=== PATIENT | male | born 1970 | race Caucasian/White ===

== ENCOUNTER 2016-11-29 20:41 | Observation (INO) | payer SELFPAY ==
[2016-11-29 20:49] VITALS: BMI 30.7
[2016-11-29] MEDS ORDERED: Pantoprazole 40 MG in Sodium Chloride 0.9% 100 ML IV STA (21:05)
[2016-11-29] MEDS ORDERED: Sodium Chloride 0.9% 1,000 ML IV STA (21:05)
--- NOTE | 2016-11-29 21:33 | ED PDOC ---
Arrival/HPI - General Chief Complaint: Alcohol Ingestion Time Seen by Provider: 11/29/16 20:48 Historian: Patient - History of Present Illness Narrative History of Present Illness (Text): 11/29/16 21:40 Abimael Pedraza is a 46 year old male who presents to the emergency department complaining of right sided abdominal pain after drinking alcohol tonight. Denies any nausea, vomiting, or diarrhea. Patient does not endorse any other complaints. Time/Duration: Other (today ) Symptom Onset: Gradual Symptom Course: Unchanged Severity Level: Mild Activities at Onset: Light Past Medical History - Provider Review Nursing Documentation Reviewed: Yes - Infectious Disease Hx of Infectious Diseases: None - Psychiatric Hx Substance Use: No - Anesthesia Hx Anesthesia: No Family/Social History - Physician Review Nursing Documentation Reviewed: Yes Family/Social History: No Known Family HX Smoking Status: Current Some Days Smoker Hx Alcohol Use: Yes Frequency of alcohol use: Daily Hx Substance Use: No Allergies/Home Meds Allergies/Adverse Reactions: Allergies Unobtainable Allergy (Verified 11/29/16 20:49) Home Medications: Home Meds Medication Instructions Recorded Confirmed Unobtainable 07/07/15 11/29/16 Review of Systems - Physician Review All systems were reviewed & negative as marked: Yes - Review of Systems Constitutional: Normal. absent: Fatigue, Fevers Respiratory: Normal. absent: SOB, Cough, Sputum Cardiovascular: Normal. absent: Chest Pain, Palpitations Gastrointestinal: Abdominal Pain (right sided ). absent: Diarrhea, Nausea, Vomiting Neurological: Normal. absent: Headache, Dizziness Psychiatric: Normal Physical Exam Vital Signs Reviewed: Yes Vital Signs Temp Pulse Resp BP Pulse Ox 11/30/16 06:28 97.9 F 79 16 134/61 99 11/30/16 05:00 71 16 128/72 97 11/30/16 03:25 76 16 115/61 95 11/30/16 00:30 85 16 132/76 99 11/29/16 20:52 97.6 F 112 H 18 142/82 95 Temperature: Afebrile Blood Pressure: Normal Pulse: Tachycardic Respiratory Rate: Normal Appearance: Positive for: Well-Appearing, Comfortable Pain Distress: None Mental Status: Positive for: Alert and Oriented X 3 - Systems Exam Head: Present: Atraumatic, Normocephalic Pupils: Present: PERRL Conjunctiva: Present: Normal Mouth: Present: Moist Mucous Membranes Respiratory/Chest: Present: Clear to Auscultation, Good Air Exchange. No: Respiratory Distress, Accessory Muscle Use Cardiovascular: Present: Regular Rate and Rhythm, Normal S1, S2. No: Murmurs Abdomen: Present: Normal Bowel Sounds. No: Tenderness, Distention, Peritoneal Signs, Rebound, Guarding, McBurney's Point Tender Upper Extremity: Present: Normal Inspection. No: Cyanosis, Edema Lower Extremity: Present: Normal Inspection. No: Edema Neurological: Present: GCS=15, CN II-XII Intact, Speech Normal, Motor Func Grossly Intact, Normal Sensory Function Skin: Present: Warm, Dry, Normal Color. No: Rashes Psychiatric: Present: Alert, Oriented x 3, Intoxicated Medical Decision Making ED Course and Treatment: 11/29/16 21:43 Impression: A 46 year old male who presents to the emergency department complaining of right abdominal pain after drinking alcohol today. Plan: -- CT abdomen pelvis -- EKG -- Labs, cardiac enzymes -- Protonix -- Zofran -- IV fluids -- Urinalysis -- Reassess and disposition Progress Notes: Will place patient on Emergency department obs. for abdominal pain. Re-evaluation Time: 06:38 Reassessment Condition: Re-examined, Improved - Lab Interpretations I have reviewed the lab results: Yes - RAD Interpretation Narrative RAD Interpretations (Text): EXAM: CT Abdomen and Pelvis Without Intravenous Contrast FINDINGS: Limitations: Lack of intravenous contrast. Streak artifact - mild. Lower thorax: Minimal atelectasis. 0.2 cm subpleural nodule vs focal scarring RIGHT middle lobe. ABDOMEN: Liver: Lobulated contour. Enlarged caudate lobe. Gallbladder and bile ducts: Calcified gallstones. No ductal dilation. Pancreas: Unremarkable. No ductal dilation. Spleen: No splenomegaly. Adrenals: No mass. Kidneys and ureters: No renal calculi. Mild pelvocaliectasis of both kidneys. Stomach and bowel: No definite mural thickening. No obstruction. Appendix: No findings to suggest acute appendicitis. PELVIS: Bladder: Distended bladder. No stones. Reproductive: Unremarkable as visualized. ABDOMEN and PELVIS: Intraperitoneal space: No significant fluid collection. No free air. Bones/joints: Mild degenerative changes of spine. Chronic L4 pars defects with anterolisthesis. No acute fracture. Soft tissues: Unremarkable. Vasculature: Unremarkable. No aneurysm. Lymph nodes: No pathologically enlarged lymph nodes. IMPRESSION: 1. Cholelithiasis. 2. Cirrhosis. 3. Pulmonary nodule. For low-risk patients, no follow-up is necessary. For high- risk patients (smoking history or other known risk factors) an optional CT at 12 months could be performed. 4. Incidental/non-acute findings are described above Radiology Orders: 11/29/16 21:05 ABD & PELVIS W/O PO OR IV CONT [CT] Stat Maintenance Superintendent: Radiologist - Medication Orders Current Medication Orders: Sodium Chloride (Sodium Chloride 0.9%) 1,000 mls @ 100 mls/hr IV .Q10H STA Stop: 11/30/16 07:04 Last Admin: 11/29/16 22:14 Dose: 100 mls/hr Discontinued Medications Pantoprazole Sodium 40 mg/ (Sodium Chloride) 100 mls @ 400 mls/hr IV STAT STA Stop: 11/29/16 21:19 Last Admin: 11/29/16 22:12 Dose: 400 mls/hr Ketorolac Tromethamine (Toradol) 30 mg IVP ONCE ONE Stop: 11/30/16 06:15 Last Admin: 11/30/16 06:26 Dose: 30 mg Ondansetron HCl (Zofran Inj) 4 mg IVP STAT STA Stop: 11/29/16 21:06 Last Admin: 11/29/16 22:12 Dose: 4 mg Pantoprazole Sodium (Protonix Inj) Confirm Administered Dose 40 mg .ROUTE .STK- MED ONE Stop: 11/29/16 22:13 Last Admin: 11/29/16 22:15 Dose: ED OBSERVATION Discharge: Yes Date of observation admission: 11/29/16 Time of observation admission: 22:00 - Observation admission statement Patient is being placed in observation because:: Abdominal pain - Goals of Observation Goals of observation are:: pending CT abdomen pelvis, labs, reevaluation and disposition. - Progress Note Progress Note: 11/30/16 00:00 Patient resting comfortably with stable vitals. No new complaints 11/30/16 00:50 CT abdomen pelvis reviewed: IMPRESSION: 1. Cholelithiasis. 2. Cirrhosis. 3. Pulmonary nodule. For low-risk patients, no follow-up is necessary. For high- risk patients (smoking history or other known risk factors) an optional CT at 12 months could be performed. 11/30/16 02:00 Sleeping comfortably in the emergency room. Stable vitals. - Scribe Statement The provider has reviewed the documentation as recorded by the Scribe Lisa Escamilla Provider Attestation: Provider Scribe Attestation: All medical record entries made by the Scribe were at my direction and personally dictated by me. I have reviewed the chart and agree that the record accurately reflects my personal performance of the history, physical exam, medical decision making, and the department course for this patient. I have also personally directed, reviewed, and agree with the discharge instructions and disposition. Disposition/Present on Arrival - Present on Arrival Any Indicators Present on Arrival: No History of DVT/PE: No History of Uncontrolled Diabetes: No Urinary Catheter: No History of Decub. Ulcer: No History Surgical Site Infection Following: None - Disposition Have Diagnosis and Disposition been Completed?: Yes Diagnosis: Alcohol intoxication, Abdominal pain Disposition: HOME/ ROUTINE Disposition Time: 06:40 Condition: GOOD
[2016-11-29 22:32] LABS: BASO # 0.02 K/mm3 (0.0-2.0); BASO % 0.3 % (0.0-3.0); EOS # 0.1 (0.0-0.7); EOS % 1.2 % (1.5-5.0); GRAN # 2.86 (1.4-6.5); GRAN % 48.1 % (50.0-68.0); HEMOGLOBIN 12.6 gm/dL (14.0-18.0); LYMPH # 2.7 (1.2-3.4); LYMPH % 45.9 % (22.0-35.0); MEAN CELL VOLUME 91.7 fL (80.0-105.0); MEAN CORPUSCULAR HEMOGLOBIN 32.8 pg (25.0-35.0); MEAN CORPUSCULAR HGB CONC 35.8 g/dl (31.0-37.0); MEAN PLATELET VOLUME 9.5 fl (7.0-11.0); MONO # 0.3 (0.1-0.6); MONO % 4.5 % (1.0-6.0); PLATELET COUNT 76 10^3/uL (120.0-450.0); RBC 3.84 10^6/uL (3.5-6.1); RED CELL DISTRIBUTION WIDTH 12.7 % (11.5-14.5)
[2016-11-29 22:37] LABS: ALB/GLOB RATIO 1.1 (1.1-1.8); ALBUMIN 4.6 g/dL (3.0-4.8); ALT/SGPT 30 U/L (7-56); AMYLASE 105 U/L (35-125); AST/SGOT 75 U/L (15-59); BLOOD UREA NITROGEN 6 mg/dL (7-21); GFR AFRICAN-AMERICAN > 60; GFR NON-AFRICAN AMERICAN > 60; LIPASE 70 U/L (23-300)
[2016-11-29 22:38] LABS: INR 1.09 (0.93-1.08); PARTIAL THROMBOPLASTIN TIME 30.3 Seconds (23.7-30.8); PROTHROMBIN TIME 11.8 Seconds (9.9-11.8)
[2016-11-29 22:49] LABS: TROPONIN I < 0.01 ng/mL
--- NOTE | 2016-11-30 00:31 | CT ---
EXAM: CT Abdomen and Pelvis Without Intravenous Contrast CLINICAL HISTORY: 46 years old, male; Pain; Abdominal pain; Additional info: Abd pain TECHNIQUE: Axial computed tomography images of the abdomen and pelvis without intravenous contrast. This CT exam was performed using one or more of the following dose reduction techniques: automated exposure control, adjustment of the mA and/or kV according to patient size, and/or use of iterative reconstruction technique. Coronal and sagittal reformatted images were created and reviewed. COMPARISON: No relevant prior studies available. FINDINGS: Limitations: Lack of intravenous contrast. Streak artifact - mild. Lower thorax: Minimal atelectasis. 0.2 cm subpleural nodule vs focal scarring RIGHT middle lobe. ABDOMEN: Liver: Lobulated contour. Enlarged caudate lobe. Gallbladder and bile ducts: Calcified gallstones. No ductal dilation. Pancreas: Unremarkable. No ductal dilation. Spleen: No splenomegaly. Adrenals: No mass. Kidneys and ureters: No renal calculi. Mild pelvocaliectasis of both kidneys. Stomach and bowel: No definite mural thickening. No obstruction. Appendix: No findings to suggest acute appendicitis. PELVIS: Bladder: Distended bladder. No stones. Reproductive: Unremarkable as visualized. ABDOMEN and PELVIS: Intraperitoneal space: No significant fluid collection. No free air. Bones/joints: Mild degenerative changes of spine. Chronic L4 pars defects with anterolisthesis. No acute fracture. Soft tissues: Unremarkable. Vasculature: Unremarkable. No aneurysm. Lymph nodes: No pathologically enlarged lymph nodes. IMPRESSION: 1. Cholelithiasis. 2. Cirrhosis. 3. Pulmonary nodule. For low-risk patients, no follow-up is necessary. For high-risk patients (smoking history or other known risk factors) an optional CT at 12 months could be performed. 4. Incidental/non-acute findings are described above.
[2016-11-30 03:26] VITALS: RESP 16
[2016-11-30 06:29] VITALS: BP 134/61; PULSE 79; TEMP 97.9; O2SAT 99
== END 2016-11-30 06:39 | disposition home or self-care (01) ==
LOC: ED 20:41 → EROBSV 22:00
PROVIDERS: ADMIT Emergency Medicine; ATTEND Emergency Medicine
DX: F10.129 Alcohol abuse with intoxication, unspecified (principal); R10.9 Unspecified abdominal pain
CPT/HCPCS: 74176; 80053; 82150; 82550; 83615; 83690; 84484; 85025; 85610; 85730; 96374; 99285; C9113; G0378; J1885; J2405; J7040

== ENCOUNTER 2016-12-05 21:50 | Observation (INO) | payer SELFPAY ==
[2016-12-05 22:11] VITALS: BMI 29.2
--- NOTE | 2016-12-05 22:33 | ED PDOC ---
Arrival/HPI - General Historian: Patient, EMS <John Watts - Last Filed: 12/06/16 04:09> <Mateo Schumacher - Last Filed: 12/06/16 06:03> - General Chief Complaint: Alcohol Ingestion Time Seen by Provider: 12/05/16 22:30 - History of Present Illness Narrative History of Present Illness (Text): 12/05/16 22:30 46 y/o male, no significant pmh, nkda, +etoh on breath and admits drinking beer tonight, biba for the etoh intoxication x 2 hours. Pt. was found in the laundromat intoxicated and attempted to sleep in the laundromat which the ambulance call, no fall or trauma, no head or neck injury, no dizziness, no abdominal pain, no dizziness, no homidical or suicidal ideation, no auditory or visual hallucination, no other medical or psychological complaints. (John Watts) Past Medical History - Provider Review Nursing Documentation Reviewed: Yes - Infectious Disease Hx of Infectious Diseases: None - Psychiatric Hx Substance Use: No - Anesthesia Hx Anesthesia: No <John Watts - Last Filed: 12/06/16 04:09> Family/Social History - Physician Review Nursing Documentation Reviewed: Yes Family/Social History: Unknown Family HX Smoking Status: Current Some Days Smoker Hx Alcohol Use: Yes Hx Substance Use: No <John Watts - Last Filed: 12/06/16 04:09> Allergies/Home Meds <John Watts - Last Filed: 12/06/16 04:09> <Mateo Schumacher - Last Filed: 12/06/16 06:03> Allergies/Adverse Reactions: Allergies Unobtainable Allergy (Verified 11/29/16 20:49) Review of Systems - Review of Systems Systems not reviewed;Unavailable: Intoxicated Constitutional: absent: Fatigue, Weight Change Eyes: absent: Vision Changes ENT: absent: Hearing Changes Respiratory: absent: SOB, Cough Cardiovascular: absent: Chest Pain Gastrointestinal: absent: Abdominal Pain, Nausea, Vomiting Musculoskeletal: absent: Arthralgias, Back Pain, Myalgias Skin: absent: Rash, Pruritis Neurological: absent: Headache, Dizziness <John Watts - Last Filed: 12/06/16 04:09> Physical Exam - Systems Exam Head: Present: Atraumatic, Normocephalic. No: Tenderness, Contusion, Swelling, Ecchymosis, Abrasion, Laceration, Other Pupils: Present: PERRL Extroacular Muscles: Present: EOMI Conjunctiva: Present: Normal Mouth: Present: Moist Mucous Membranes Neck: Present: Normal Range of Motion, Trachea Midline. No: Meningeal Signs, MIDLINE TENDERNESS, Paraspinal Tenderness, Lymphadenopathy Respiratory/Chest: Present: Clear to Auscultation, Good Air Exchange. No: Respiratory Distress, Accessory Muscle Use Cardiovascular: Present: Regular Rate and Rhythm, Normal S1, S2. No: Murmurs Abdomen: Present: Normal Bowel Sounds. No: Tenderness, Distention, Peritoneal Signs Back: Present: Normal Inspection Upper Extremity: Present: Normal Inspection. No: Cyanosis, Edema Lower Extremity: Present: Normal Inspection. No: Edema Neurological: Present: GCS=15, Speech Normal, Motor Func Grossly Intact, Memory Normal Skin: Present: Warm, Dry, Normal Color Psychiatric: Present: Alert, Oriented x 3, Normal Insight, Normal Concentration <John Watts - Last Filed: 12/06/16 04:09> Medical Decision Making <John Watts - Last Filed: 12/06/16 04:09> <Mateo Schumacher - Last Filed: 12/06/16 06:03> ED Course and Treatment: 12/05/16 22:32 -FS -Observe and reassess (John Watts) ED OBSERVATION Date of observation admission: 12/06/16 Time of observation admission: 00:30 <John Watts - Last Filed: 12/06/16 04:09> Discharge: Yes <Mateo Schumacher - Last Filed: 12/06/16 06:03> - Observation admission statement Patient is being placed in observation because:: alcohol intoxication (John Watts) - Goals of Observation Goals of observation are:: sober (John Watts) - Progress Note Progress Note: 12/06/16 00:30 -Pt. is sleeping 12/06/16 02:30 -Pt. is sleeping, pending for the sober, offer no medical or psychological complaints. -Pt. sign out to the current ER attending Dr. Schumacher for the continue observation and final dispo the patient. (John Watts) - PA / CERTIFIED INCOME TAX PREPARER / Resident Statement MD/DO has reviewed & agrees with the documentation as recorded. <John Watts - Last Filed: 12/06/16 04:09> - PA / CERTIFIED INCOME TAX PREPARER / Resident Statement MD/DO has reviewed & agrees with the documentation as recorded. <Mateo Schumacher - Last Filed: 12/06/16 06:03> Disposition/Present on Arrival - Present on Arrival Any Indicators Present on Arrival: No History of DVT/PE: No History of Uncontrolled Diabetes: No Urinary Catheter: No History of Decub. Ulcer: No History Surgical Site Infection Following: None - Disposition Have Diagnosis and Disposition been Completed?: Yes Disposition Time: 02:09 <John Watts - Last Filed: 12/06/16 04:09> - Present on Arrival Any Indicators Present on Arrival: No - Disposition Have Diagnosis and Disposition been Completed?: Yes Disposition Time: 06:00 <Mateo Schumacher - Last Filed: 12/06/16 06:03> - Disposition Diagnosis: Alcohol intoxication Disposition: HOME/ ROUTINE Patient Problems: Current Active Problems Problem Status Onset Alcohol intoxication Acute Condition: GOOD
[2016-12-05 23:04] VITALS: TEMP 98
[2016-12-06 04:48] VITALS: RESP 18
[2016-12-06 05:51] VITALS: BP 142/83; PULSE 80; O2SAT 97
== END 2016-12-06 06:03 | disposition home or self-care (01) ==
LOC: ED 21:50 → EROBSV 12-06 02:07
PROVIDERS: ADMIT Emergency Medicine; ATTEND Emergency Medicine
DX: F10.129 Alcohol abuse with intoxication, unspecified (principal)
CPT/HCPCS: 99284; G0378

== ENCOUNTER 2016-12-10 20:24 | Observation (INO) | payer SELFPAY ==
[2016-12-10 20:24] VITALS: BMI 29.2
--- NOTE | 2016-12-10 20:52 | ED PDOC ---
Arrival/HPI - General Chief Complaint: Alcohol Ingestion Time Seen by Provider: 12/10/16 20:25 Historian: Patient EM Caveat: Intoxicated - History of Present Illness Narrative History of Present Illness (Text): 12/10/16 20:49 A 46 year old male, with a history of etoh abuse, is brought into the emergency department via EMS for public intoxication. Patient admits to drinking earlier today and denies any other complaints at this time. Time/Duration: 4-6 hours Symptom Onset: Other (etoh consumption) Activities at Onset: Light Context: Other Past Medical History - Provider Review Nursing Documentation Reviewed: Yes - Infectious Disease Hx of Infectious Diseases: None - Psychiatric Hx Substance Use: No - Surgical History Hx Appendectomy: Yes - Anesthesia Hx Anesthesia: No Family/Social History - Physician Review Nursing Documentation Reviewed: Yes Family/Social History: No Known Family HX Smoking Status: Current Some Days Smoker Hx Alcohol Use: Yes Frequency of alcohol use: Daily Hx Substance Use: No Allergies/Home Meds Allergies/Adverse Reactions: Allergies Unobtainable Allergy (Verified 12/10/16 20:43) Home Medications: Home Meds Medication Instructions Recorded Confirmed No Known Home Med 12/10/16 12/10/16 Review of Systems - Physician Review All systems were reviewed & negative as marked: Yes - Review of Systems Constitutional: Normal. absent: Fevers Eyes: Normal ENT: Normal Respiratory: Normal. absent: SOB, Cough Cardiovascular: Normal. absent: Chest Pain Gastrointestinal: Normal. absent: Abdominal Pain, Diarrhea, Nausea, Vomiting Genitourinary Male: Normal. absent: Dysuria, Frequency, Hematuria, Urinary Output Changes Musculoskeletal: Normal. absent: Back Pain, Neck Pain Skin: Normal. absent: Rash Neurological: Normal. absent: Headache, Dizziness Endocrine: Normal Hemo/Lymphatic: Normal Psychiatric: Normal Physical Exam - Physical Exam Physical Exam Limitations: Intoxication Vital Signs Reviewed: Yes Vital Signs Temp Pulse Resp BP Pulse Ox 12/10/16 20:39 98.6 F 85 16 159/78 H 99 Temperature: Afebrile Blood Pressure: Hypertensive Pulse: Regular Respiratory Rate: Normal Appearance: Positive for: Well-Appearing, Non-Toxic, Comfortable Pain Distress: None Mental Status: Positive for: Alert and Oriented X 3, other (intoxicated) - Systems Exam Head: Present: Atraumatic, Normocephalic Pupils: Present: PERRL Extroacular Muscles: Present: EOMI Conjunctiva: Present: Normal Ears: Present: NORMAL TM Mouth: Present: Moist Mucous Membranes Pharnyx: Present: Normal Neck: Present: Normal Range of Motion Respiratory/Chest: Present: Clear to Auscultation, Good Air Exchange. No: Respiratory Distress, Accessory Muscle Use Cardiovascular: Present: Regular Rate and Rhythm, Normal S1, S2. No: Murmurs Abdomen: Present: Normal Bowel Sounds. No: Tenderness, Distention, Peritoneal Signs Back: Present: Normal Inspection Upper Extremity: Present: Normal Inspection. No: Cyanosis, Edema Lower Extremity: Present: Normal Inspection. No: Edema Neurological: Present: GCS=15, CN II-XII Intact, Speech Normal, Motor Func Grossly Intact, Normal Sensory Function Skin: Present: Warm, Dry, Normal Color. No: Rashes Psychiatric: Present: Alert, Oriented x 3, Intoxicated ED OBSERVATION Discharge: Yes Date of observation admission: 12/10/16 Time of observation admission: 20:52 - Observation admission statement Patient is being placed in observation because:: alcohol intoxication - Goals of Observation Goals of observation are:: Pt. to be observed for sobriety, any signs of withdrawal. - Progress Note Progress Note: 12/10/16 20:52 Patient is currently pending sobriety. 12/10/16 22:50 Pt resting comfortably, no new complaints. 12/11/16 00:50 Pt sleeping currently, in no acute distress. 12/11/16 02:50 Pt resting comfortably, no new complaints. 12/11/16 04:50 Pt sleeping currently, in no acute distress. 12/11/16 05:51 Pt awake, alert, and ambulating with steady gait. Pt stable for d/c. - PA / COMPUTER SYSTEMS ENGINEER / Resident Statement MD/DO has reviewed & agrees with the documentation as recorded. - Scribe Statement The provider has reviewed the documentation as recorded by the Elaibashkan Cooper Provider Scribe Attestation: All medical record entries made by the Scribe were at my direction and personally dictated by me. I have reviewed the chart and agree that the record accurately reflects my personal performance of the history, physical exam, medical decision making, and the department course for this patient. I have also personally directed, reviewed, and agree with the discharge instructions and disposition. Disposition/Present on Arrival - Present on Arrival Any Indicators Present on Arrival: No History of DVT/PE: No History of Uncontrolled Diabetes: No Urinary Catheter: No History of Decub. Ulcer: No History Surgical Site Infection Following: None - Disposition Have Diagnosis and Disposition been Completed?: Yes Diagnosis: Alcohol intoxication Disposition: HOME/ ROUTINE Disposition Time: 05:56 Patient Plan: Discharge Condition: STABLE
[2016-12-11 06:08] VITALS: BP 133/76; PULSE 81; RESP 17; TEMP 97.9; O2SAT 98
== END 2016-12-11 05:56 | disposition home or self-care (01) ==
LOC: ED 20:24 → EROBSV 20:52
PROVIDERS: ADMIT Emergency Medicine; ATTEND Emergency Medicine
DX: F10.129 Alcohol abuse with intoxication, unspecified (principal)
CPT/HCPCS: 99283; G0378

== ENCOUNTER 2016-12-16 19:45 | Observation (INO) | payer SELFPAY ==
[2016-12-16 19:53] VITALS: BMI 24.2
--- NOTE | 2016-12-16 19:54 | ED PDOC ---
Arrival/HPI - General Time Seen by Provider: 12/16/16 19:49 - History of Present Illness Narrative History of Present Illness (Text): 12/16/16 19:51 Patient presents with slurring of speech and alcohol on breath. Admits to drinking throughout the day. Pt denies suicidal or homicidal ideations. Denies any trauma or injury. Past Medical History - Provider Review Nursing Documentation Reviewed: Yes - Infectious Disease Hx of Infectious Diseases: None - Psychiatric Hx Substance Use: No - Surgical History Hx Appendectomy: Yes - Anesthesia Hx Anesthesia: No Family/Social History Family/Social History: Unknown Family HX Smoking Status: Current Some Days Smoker Hx Alcohol Use: Yes Hx Substance Use: No Allergies/Home Meds Allergies/Adverse Reactions: Allergies No Known Allergies Allergy (Verified 12/16/16 19:52) Home Medications: Home Meds Medication Instructions Recorded Confirmed No Known Home Med 12/10/16 12/16/16 Review of Systems - Review of Systems Systems not reviewed;Unavailable: Intoxicated Physical Exam - Physical Exam Narrative Physical Exam (Text): 12/16/16 19:52 pt in no distress, no airway compromise, breathing without difficulty, good insp /exp effort. No signs of head/torso/extremity trauma. Following commands without difficulty. Head: Present: Atraumatic, Normocephalic. No: Tenderness, Contusion, Swelling, Ecchymosis, Abrasion, Laceration Pupils: Present: PERRL Extroacular Muscles: Present: EOMI Conjunctiva: Present: Normal Mouth: Present: Moist Mucous Membranes Neck: Present: Normal Range of Motion. No: MIDLINE TENDERNESS, Paraspinal Tenderness Respiratory/Chest: Present: Clear to Auscultation, Good Air Exchange. No: Respiratory Distress, Accessory Muscle Use Cardiovascular: Present: Regular Rate and Rhythm, Normal S1, S2. No: Murmurs Abdomen: Present: Normal Bowel Sounds. No: Tenderness, Distention, Peritoneal Signs, Rebound, Guarding Back: Present: Normal Inspection. No: Midline Tenderness, Paraspinal Tenderness Upper Extremity: Present: Normal Inspection. No: Cyanosis, Edema Lower Extremity: Present: Normal Inspection. No: Edema Neurological: Present: GCS=15, CN II-XII Intact Skin: Present: Warm, Dry, Normal Color. No: Rashes Lymphatic: Present: OX3, NI, NC Psychiatric: Present: Alert. No: Agitated Vital Signs Temp Pulse Resp BP Pulse Ox 12/17/16 00:00 88 18 136/68 99 12/16/16 20:01 98.1 F 103 H 18 130/61 95 ED OBSERVATION Discharge: Yes Date of observation admission: 12/16/16 Time of observation admission: 19:53 - Observation admission statement Patient is being placed in observation because:: alcohol intoxication - Goals of Observation Goals of observation are:: pending sobriety - Progress Note Progress Note: 12/16/16 19:53 Patient resting comfortably, no complaints at this time. 12/16/16 21:53 Patient resting comfortably, no complaints at this time. 12/16/16 22:20 pt's previous records reviewed pt was seen for abd pain in the past, CT showed cholelithiasis pt now states he is having RUQ discomfort labs and imaging ordered 12/16/16 23:53 Patient resting comfortably, no complaints at this time. 12/17/16 01:53 Patient is resting comfortably, no complaints at this time. 12/17/16 01:55 Abd/Pelvis CT IMPRESSION: 1. Cholelithiasis. 2. Cirrhosis. 3. Pulmonary nodule. Pulmonary nodule. For low-risk patients, no follow-up is necessary. For highrisk patients (smoking history or other known risk factors) an optional CT at 12 months could be performed. 4. Incidental/non-acute findings are described above. 12/17/16 03:54 Patient is resting comfortably, no complaints at this time. 12/17/16 05:39 Patient resting comfortably, no complaints at this time. 12/17/16 06:19 Pt has been closely monitored throughout the stay in the ED. Currently pt is ANOx3 to person, place, and time. Has good insight and judgment. Denies suicidal or homicidal ideations. Pt has steady gait, ambulates without difficulty, not slurring speech. Patient denies any complaints at this time. Patient is not tremulous, not tachycardic, no signs or symptoms of alcohol withdrawal. Patient's repeat abdominal exam is soft, nontender, non distended with positive bowel sounds in all 4 quadrants and no peritoneal signs. Patient is tolerating PO without any difficulty. pt states he is a smoker CT results reviewed with him pt instructed to f/u with an outpatient PMD and Flight Technician for further w/u pt verbalized understanding of our conversation (translated with help of Malaysian speaking RN) Pt states he understands to return to the ER right away for new or worsening symptoms or for inability to f/u with PMD or specialist as instructed. Patient states that he fully agrees with and understands discharge instructions. States that he agrees with the plan and disposition. Verbalized and repeated discharge instructions and plan. I have given the patient opportunity to ask any additional questions. Disposition/Present on Arrival - Present on Arrival Any Indicators Present on Arrival: No History of DVT/PE: No History of Uncontrolled Diabetes: No Urinary Catheter: No History Surgical Site Infection Following: None - Disposition Have Diagnosis and Disposition been Completed?: Yes Diagnosis: Alcohol intoxication Disposition: HOME/ ROUTINE Disposition Time: 19:52 Patient Plan: Observation Patient Problems: Current Active Problems Problem Status Onset Alcohol intoxication Acute Condition: GOOD
[2016-12-16 20:01] VITALS: TEMP 98.1
[2016-12-16 23:14] LABS: ALB/GLOB RATIO 1.1 (1.1-1.8); ALBUMIN 4.2 g/dL (3.0-4.8); ALT/SGPT 45 U/L (7-56); AST/SGOT 114 U/L (15-59); BLOOD UREA NITROGEN 5 mg/dL (7-21); CALCIUM 8.6 mg/dL (8.4-10.5); GFR AFRICAN-AMERICAN > 60; GFR NON-AFRICAN AMERICAN > 60; LIPASE 90 U/L (23-300)
[2016-12-16 23:36] LABS: BASO # 0.02 K/mm3 (0.0-2.0); BASO % 0.6 % (0.0-3.0); EOS % 0.6 % (1.5-5.0); GRAN # 1.36 (1.4-6.5); HEMOGLOBIN 10.9 g/dL (14.0-18.0); LYMPH # 1.4 (1.2-3.4); LYMPH % 44.8 % (22.0-35.0); MEAN CELL VOLUME 93.4 fl (80.0-105.0); MEAN CORPUSCULAR HEMOGLOBIN 32.9 pg (25.0-35.0); MEAN CORPUSCULAR HGB CONC 35.3 g/dl (31.0-37.0); MEAN PLATELET VOLUME 9.6 fl (7.0-11.0); MONO # 0.3 (0.1-0.6); MONO % 9.7 % (1.0-6.0); RBC 3.31 10^6/uL (3.5-6.1); RED CELL DISTRIBUTION WIDTH 14.8 % (11.5-14.5); WHITE BLOOD COUNT 3.1 10^3/ul (4.5-11.0)
[2016-12-16 23:39] LABS: GRAN % 44.3 % (50.0-68.0)
[2016-12-17 00:20] LABS: INR 1.18 (0.93-1.08); PARTIAL THROMBOPLASTIN TIME 31.6 Seconds (23.7-30.8); PROTHROMBIN TIME 12.7 Seconds (9.9-11.8)
--- NOTE | 2016-12-17 01:55 | CT ---
EXAM: CT Abdomen and Pelvis With Intravenous Contrast CLINICAL HISTORY: 46 years old, male; Pain; Abdominal pain; Patient HX: Abd pain, alcohol intoxication TECHNIQUE: Axial computed tomography images of the abdomen and pelvis with intravenous contrast. All CT scans at this facility use one or more dose reduction techniques, viz.: automated exposure control; ma/kV adjustment per patient size (including targeted exams where dose is matched to indication; i.e. head); or iterative reconstruction technique. Coronal and sagittal reformatted images were created and reviewed. CONTRAST: 96 mL of OMNIPAQUE 350 administered intravenously. COMPARISON: CT - ABD PELVIS W/O PO OR IV CONT 11/29/2016 11:23:08 PM FINDINGS: Lower thorax: 0.2 cm nodule RIGHT middle lobe. Mild atelectasis. ABDOMEN: Liver: Fatty infiltration. Lobulated contour. Enlarged caudate lobe. Gallbladder and bile ducts: Calcified gallstones. No ductal dilation. Pancreas: No ductal dilation. No mass. Spleen: No splenomegaly. Adrenals: No mass. Kidneys and ureters: No mass. Mild pelvocaliectasis of both kidneys. Stomach and bowel: No definite mural thickening. No obstruction. Appendix: No findings to suggest acute appendicitis. PELVIS: Bladder: Distended bladder. Reproductive: Unremarkable as visualized. ABDOMEN and PELVIS: Intraperitoneal space: No significant fluid collection. No free air. Bones/joints: Mild degenerative changes of spine. Chronic L3, L4 pars defects with anterolisthesis. No acute fracture. Soft tissues: Unremarkable. Vasculature: Unremarkable. No aneurysm. Lymph nodes: No pathologically enlarged lymph nodes. IMPRESSION: 1. Cholelithiasis. 2. Cirrhosis. 3. Pulmonary nodule. Pulmonary nodule. For low-risk patients, no follow-up is necessary. For high-risk patients (smoking history or other known risk factors) an optional CT at 12 months could be performed. 4. Incidental/non-acute findings are described above.
[2016-12-17 07:02] VITALS: BP 126/70; PULSE 76; RESP 16; O2SAT 100
== END 2016-12-17 06:24 | disposition home or self-care (01) ==
LOC: ED 19:45 → EROBSV 19:54
PROVIDERS: ADMIT Emergency Medicine; ATTEND Emergency Medicine
DX: F10.129 Alcohol abuse with intoxication, unspecified (principal)
CPT/HCPCS: 36415; 74177; 80053; 82948; 83690; 85025; 85610; 85730; 99282; G0378

== ENCOUNTER 2017-01-17 14:34 | Observation (INO) | payer OTHER ==
--- NOTE | 2017-01-17 14:46 | ED PDOC ---
Arrival/HPI - General Historian: Patient - History of Present Illness Time/Duration: Other (today) Symptom Course: Unchanged Quality: Other Context: Other <Toney Wadsworth - Last Filed: 01/17/17 18:33> <Isael Rose - Last Filed: 01/17/17 23:30> - General Time Seen by Provider: 01/17/17 14:39 - History of Present Illness Narrative History of Present Illness (Text): 01/17/17 14:43 A 46 year old male brought into the emergency department by EMS for alcohol intoxication. Patient admits to drinking a lot alcohol today. He currently denies any pain or discomfort. Patient denies any trauma, injury, fever, chills , nausea, vomiting, abdominal pain, chest pain, shortness of breath, suicidal ideation, homicidal ideation or any other complaints. (Toney Wadsworth) Past Medical History - Provider Review Nursing Documentation Reviewed: Yes - Infectious Disease Hx of Infectious Diseases: None - Psychiatric Hx Substance Use: No - Surgical History Hx Appendectomy: Yes - Anesthesia Hx Anesthesia: No <Toney aWdsworth - Last Filed: 01/17/17 18:33> Family/Social History - Physician Review Nursing Documentation Reviewed: Yes Family/Social History: No Known Family HX Smoking Status: Current Some Days Smoker Hx Alcohol Use: Yes Hx Substance Use: No <Toney Wadsworth - Last Filed: 01/17/17 18:33> Allergies/Home Meds <Toney Wadsworth - Last Filed: 01/17/17 18:33> <Isael Rose - Last Filed: 01/17/17 23:30> Allergies/Adverse Reactions: Allergies No Known Allergies Allergy (Verified 01/17/17 14:46) Home Medications: Home Meds Medication Instructions Recorded Confirmed No Known Home Med 12/10/16 01/17/17 Review of Systems - Review of Systems Systems not reviewed;Unavailable: Intoxicated <Toney Wadsworth - Last Filed: 01/17/17 18:33> Physical Exam Appearance: Positive for: Comfortable, Other (intoxicated male) Pain Distress: None Mental Status: No: Confused, Agitated, Lethargic - Systems Exam Head: Present: Atraumatic, Normocephalic Pupils: Present: PERRL Extroacular Muscles: Present: EOMI Conjunctiva: Present: Normal Mouth: Present: Moist Mucous Membranes, Other (Alcohol on breath) Neck: Present: Normal Range of Motion Respiratory/Chest: Present: Clear to Auscultation, Good Air Exchange. No: Respiratory Distress, Accessory Muscle Use Cardiovascular: Present: Regular Rate and Rhythm, Normal S1, S2. No: Murmurs Abdomen: Present: Normal Bowel Sounds. No: Tenderness, Distention, Peritoneal Signs Back: Present: Normal Inspection Upper Extremity: Present: Normal Inspection. No: Cyanosis, Edema Lower Extremity: Present: Normal Inspection. No: Edema Neurological: Present: GCS=15, CN II-XII Intact. No: Speech Normal (slurred speech) Skin: Present: Warm, Dry, Normal Color. No: Rashes Psychiatric: Present: Intoxicated. No: Agitated, Suicidal Ideation, Homicidal Ideation, Lethargic <Toney Wadsworth - Last Filed: 01/17/17 18:33> Vital Signs Temp Pulse Resp BP Pulse Ox 01/17/17 23:08 88 16 117/70 96 01/17/17 15:01 98.2 F 94 H 16 135/73 95 Medical Decision Making <Toney Wadsworth - Last Filed: 01/17/17 18:33> <Isael Rose - Last Filed: 01/17/17 23:30> ED Course and Treatment: 01/17/17 14:43 Impression: A 46 year old male brought in for alcohol intoxication. Patient denies any complaints. Differential Diagnosis included but are not limited to: Alcohol intoxication Plan: -- ED observation -- Reassess and disposition (Toney Wadsworth) ED OBSERVATION Date of observation admission: 01/17/17 Time of observation admission: 14:46 <Toney Wadsworth - Last Filed: 01/17/17 18:33> Discharge: Yes <Isael Rose - Last Filed: 01/17/17 23:30> - Observation admission statement Patient is being placed in observation because:: Alcohol intoxication (Toney Wadsworth) - Goals of Observation Goals of observation are:: Sobriety (Toney Wadsworth) - Progress Note Progress Note: 01/17/17 14:46 Patient brought in for alcohol intoxication. Will observe pending sobriety. 01/17/17 18:33 Patient is AAOx3. Mild slurred speech. Not able to stand with a steady gait. Will sign out to Dr. Rose to f/u sobriety. (Toney Wadsworth) 01/17/17 19:28: Patient endorsed to me by Dr. Wadsworth. Patient is here for ETOH intoxication. Currently resting comfortably and in no acute distress. Will observe for sobriety. 01/17/17 21:25 Pt resting comfortably, in no acute distress. 01/17/17 23:29 Pt. awake alert sober with steady gait in ED (Isael Rose) - Scribe Statement The provider has reviewed the documentation as recorded by the Scribe <Toney Wadsworth - Last Filed: 01/17/17 18:33> <Isael Rose - Last Filed: 01/17/17 23:30> - Scribe Statement Charisse Huerta Provider Scribe Attestation: All medical record entries made by the Scribe were at my direction and personally dictated by me. I have reviewed the chart and agree that the record accurately reflects my personal performance of the history, physical exam, medical decision making, and the department course for this patient. I have also personally directed, reviewed, and agree with the discharge instructions and disposition. (Toney Wadsworth) Disposition/Present on Arrival - Present on Arrival Any Indicators Present on Arrival: No History of DVT/PE: No History of Uncontrolled Diabetes: No Urinary Catheter: No History Surgical Site Infection Following: None - Disposition Have Diagnosis and Disposition been Completed?: Yes Disposition Time: 14:46 <Toney Wadsworth - Last Filed: 01/17/17 18:33> - Present on Arrival Any Indicators Present on Arrival: No History of DVT/PE: No History of Uncontrolled Diabetes: No - Disposition Have Diagnosis and Disposition been Completed?: Yes Disposition Time: 23:30 Patient Plan: Discharge <Isael Rose - Last Filed: 01/17/17 23:30> - Disposition Diagnosis: Alcohol intoxication Disposition: HOME/ ROUTINE Patient Problems: Current Active Problems Problem Status Onset Alcohol intoxication Acute Condition: GOOD
[2017-01-17 14:47] VITALS: BMI 25.7
[2017-01-17 15:02] VITALS: RESP 16; TEMP 98.2
[2017-01-17 23:09] VITALS: BP 117/70; PULSE 88; O2SAT 96
== END 2017-01-17 23:29 | disposition home or self-care (01) ==
LOC: ED 14:34 → EROBSV 14:46
PROVIDERS: ADMIT Emergency Medicine; ATTEND Emergency Medicine
DX: F10.129 Alcohol abuse with intoxication, unspecified (principal)
CPT/HCPCS: 82948; 99282; G0378

== ENCOUNTER 2018-07-29 18:55 | Emergency (ER) | payer SELFPAY ==
[2018-07-29 18:56] VITALS: BMI 25.7
[2018-07-29 20:27] LABS: BASO # 0.01 K/mm3 (0.0-2.0); BASO % 0.2 % (0.0-3.0); HEMOGLOBIN 10.6 g/dL (14.0-18.0); LYMPH # 1.4 (1.2-3.4); LYMPH % 33.3 % (22.0-35.0); MEAN CELL VOLUME 96.1 fl (80.0-105.0); MEAN CORPUSCULAR HEMOGLOBIN 32.1 pg (25.0-35.0); MEAN CORPUSCULAR HGB CONC 33.4 g/dl (31.0-37.0); MEAN PLATELET VOLUME 9.9 fl (7.0-11.0); MONO # 0.5 (0.1-0.6); RED CELL DISTRIBUTION WIDTH 15.6 % (11.5-14.5); WHITE BLOOD COUNT 4.1 10^3/uL (4.5-11.0)
[2018-07-29 20:33] LABS: PLATELET COUNT 36 10^3/uL (120.0-450.0)
[2018-07-29 20:37] LABS: INR 1.5; PARTIAL THROMBOPLASTIN TIME 38.6 Seconds (26.9-38.3); PROTHROMBIN TIME 16.7 SECONDS (9.4-12.5)
--- NOTE | 2018-07-29 20:39 | ED PDOC ---
Arrival/HPI - General Chief Complaint: Headache Time Seen by Provider: 07/29/18 19:29 Historian: Patient - History of Present Illness Narrative History of Present Illness (Text): 07/29/18 23:56 48 y/o male with PMH of cirrhosis, cholelithiasis, and alcohol abuse presents to the ED intoxicated c/o intermittent epistaxis for the last 1 week. Pt states that when he wakes up in the morning, he occasionally has nose bleeds that res olve spontaneously after approximately 5 minutes. Associated intermittent headache and dizziness. Currently c/o headache; mild, frontal, dull. Admits to drinking alcohol today, 8 large beers. (+) alcohol on breath. Denies SI, HI, hallucinations, seizures, nausea, vomiting, diarrhea, numbness, weakness, paresthesias, back pain, neck pain, trauma/injury, chest pain, SOB, or any other associated symptoms. Past Medical History - Provider Review Nursing Documentation Reviewed: Yes - Infectious Disease Hx of Infectious Diseases: None - Cardiac Hx Cardiac Disorders: No - Pulmonary Hx Respiratory Disorders: No - Neurological Hx Neurological Disorder: No - HEENT Hx HEENT Disorder: No Hx Blind: No - Renal Hx Renal Disorder: No - Endocrine/Metabolic Hx Endocrine Disorders: No - Hematological/Oncological Hx Blood Disorders: No - Integumentary Hx Dermatological Disorder: No Hx Basal Cell Carcinoma: No - Musculoskeletal/Rheumatological Hx Arthritis: No - Gastrointestinal Hx Gastrointestinal Disorders: No - Genitourinary/Gynecological Hx Genitourinary Disorders: No - Psychiatric Hx Psychophysiologic Disorder: No Hx Substance Use: No - Surgical History Hx Appendectomy: Yes - Anesthesia Hx Anesthesia: No Family/Social History - Physician Review Nursing Documentation Reviewed: Yes Family/Social History: No Known Family HX Smoking Status: Current Some Days Smoker Hx Alcohol Use: Yes Hx Substance Use: No Allergies/Home Meds Allergies/Adverse Reactions: Allergies No Known Allergies Allergy (Verified 07/29/18 19:18) Home Medications: Home Meds Medication Instructions Recorded Confirmed No Known Home Med 12/10/16 07/29/18 Review of Systems - Review of Systems Systems not reviewed;Unavailable: Intoxicated Constitutional: Normal. absent: Fevers Eyes: Normal. absent: Vision Changes ENT: Epistaxis Respiratory: Normal. absent: SOB, Cough Cardiovascular: Normal. absent: Chest Pain, Palpitations Gastrointestinal: Normal. absent: Abdominal Pain, Nausea, Vomiting Genitourinary Male: Normal Musculoskeletal: Normal. absent: Back Pain, Neck Pain Skin: Normal. absent: Rash Neurological: Normal. absent: Headache, Dizziness Endocrine: Normal Hemo/Lymphatic: Normal Psychiatric: Normal. absent: Suicidal Ideation Physical Exam Vital Signs Reviewed: Yes Vital Signs Temp Pulse Resp BP Pulse Ox 07/29/18 19:17 97.6 F 92 H 18 124/79 98 Temperature: Afebrile Blood Pressure: Normal Pulse: Regular Respiratory Rate: Normal Appearance: Positive for: Well-Appearing, Non-Toxic, Comfortable Pain Distress: None Mental Status: Positive for: Alert and Oriented X 3 Finger Stick Blood Glucose: 120 - Systems Exam Head: Present: Atraumatic, Normocephalic Pupils: Present: PERRL Extroacular Muscles: Present: EOMI Conjunctiva: Present: Normal Mouth: Present: Moist Mucous Membranes Pharnyx: Present: Normal. No: ERYTHEMA, EXUDATE, TONSILS ENLARGED Nose (External): Present: Atraumatic Nose (Internal): Present: Normal Inspection, Moist. No: No Active Bleeding, Septal Hematoma, Epistaxis Neck: Present: Normal Range of Motion. No: Meningeal Signs, MIDLINE TENDERNESS, Paraspinal Tenderness Respiratory/Chest: Present: Clear to Auscultation. No: Respiratory Distress, Accessory Muscle Use Cardiovascular: Present: Regular Rate and Rhythm, Normal S1, S2 Abdomen: Present: Distention (mildly distended ), Normal Bowel Sounds, Other (prominent venous vasculature ). No: Tenderness, Peritoneal Signs, Rebound, Guarding Back: Present: Normal Inspection. No: CVA Tenderness, Paraspinal Tenderness Upper Extremity: Present: Normal Inspection, Normal ROM, NORMAL PULSES, Neurovascularly Intact, Capillary Refill < 2s. No: Cyanosis, Edema, Temperature Abnormalties Lower Extremity: Present: Normal Inspection, NORMAL PULSES, Normal ROM, Neurovascularly Intact, Capillary Refill < 2 s. No: Edema, Temperature Abnormalties Neurological: Present: GCS=15 Skin: Present: Warm, Dry, Normal Color. No: Rashes Psychiatric: Present: Alert, Intoxicated Medical Decision Making ED Course and Treatment: Initial Plan: * Serum alcohol * CBC, CMP * Coags * Troponin * UA * UDS * Head CT * EKG * CXR 07/29/18 20:38 Alerted by nursing that patient's platelets are 36 Type and screen, platelets ordered for patient Blood consent NOT obtained secondary to patient's intoxicated state. Serum alcohol [address] negative for ICH EKG shows NSR at 83 without ischemic changes, troponin negative 07/29/18 20:58 Discussed case with hospitalist Dr. Rodriguez who will be accepting patient to telemetry floor with diagnosis of alcohol intoxication and pancytopenia. Advised by admitting team to cancel platelets. Pt updated on change in disposition. Pt resting comfortably in stretcher with stable vitals at this time. - Lab Interpretations Lab Results: 07/29/18 20:20 07/29/18 20:20 Lab Results 07/29/18 21:07: Blood Type Confirm O POSITIVE 07/29/18 20:39: Blood Type O POSITIVE, Antibody Screen Negative, BBK History Ch ecked No verified bt 07/29/18 20:20: Troponin I < 0.01 07/29/18 20:20: PT 16.7 H, INR 1.50, APTT 38.6 H 07/29/18 20:20: Alcohol, Quantitative 347 H* 07/29/18 20:20: Sodium 143, Potassium 3.5 L, Chloride 105, Carbon Dioxide 25, Anion Gap 16, BUN 7, Creatinine 0.5 L, Est GFR ( Amer) > 60, Est GFR (Non-Af Amer) > 60, Random Glucose 123 H, Calcium 8.4, Total Bilirubin 1.2, AST 92 H, ALT 20, Alkaline Phosphatase 195 H, Total Protein 8.4 H, Albumin 3.3, Globulin 5.1, Albumin/Globulin Ratio 0.7 L 07/29/18 20:20: WBC 4.1 L, RBC 3.30 L, Hgb 10.6 L, Hct 31.7 L, MCV 96.1, MCH 32.1, MCHC 33.4, RDW 15.6 H, Plt Count 36 L*, MPV 9.9, Neut % (Auto) 54.5, Lymph % (Auto) 33.3, Nobles % (Auto) 11.0 H, Eos % (Auto) 1.0 L, Baso % (Auto) 0.2, Lymph # (Auto) 1.4, Nobles # (Auto) 0.5, Eos # (Auto) 0.0, Baso # (Auto) 0.01, Absolute Neuts (auto) 2.22 I have reviewed the lab results: Yes - RAD Interpretation Narrative RAD Interpretations (Text): 07/30/18 00:[address]: FINDINGS: BRAIN No acute intraparenchymal hemorrhage. No mass lesion. No CT evidence for acute territorial infarct. No midline shift or extra-axial collections. VENTRICLES: No hydrocephalus. ORBITS: The orbits are unremarkable. SINUSES AND MASTOIDS: Mucoperiosteal thickening noted in the inferior right maxillary sinus compatible with sinusitis. The remaining paranasal sinuses and mastoid air cells are clear. BONES: No fracture. SOFT TISSUES: Unremarkable. IMPRESSION: 1. No acute intracranial abnormality. 2. Minimal inferior right maxillary sinusitis. Electronically signed on Jul 29, 2018 9:27:21 PM EDT by: Polo Hermosillo M.D., MBA Certified By [facility] & [facility] Fellowship Trained MRI and CT Specialist Radiology Orders: 07/29/18 19:44 HEAD W/O CONTRAST [CT] Stat [employer] Tm1 Developer: Radiologist - EKG Interpretation EKG Interpretation (Text): 07/30/18 00:31 Rate 83; NSR; Normal Intervals; No STEMI or other signs of acute ischemia Interpreted by ED Physician: Yes Type: 12 lead EKG Disposition/Present on Arrival - Present on Arrival Any Indicators Present on Arrival: No History of DVT/PE: No History of Uncontrolled Diabetes: No Urinary Catheter: No History of Decub. Ulcer: No History Surgical Site Infection Following: None - Disposition Have Diagnosis and Disposition been Completed?: Yes Diagnosis: Alcohol intoxication, Pancytopenia Disposition: HOSPITALIZED Disposition Time: 20:58 Patient Plan: Admission Patient Problems: Current Active Problems Problem Status Onset Alcohol intoxication Acute Pancytopenia Acute Condition: STABLE
[2018-07-29 20:40] LABS: ALB/GLOB RATIO 0.7 (1.1-1.8); ALBUMIN 3.3 g/dL (3.0-4.8); ALT/SGPT 20 U/L (7-56); AST/SGOT 92 U/L (17-59); BLOOD UREA NITROGEN 7 mg/dL (7-21); CALCIUM 8.4 mg/dL (8.4-10.5); GFR NON-AFRICAN AMERICAN > 60
[2018-07-29] MEDS ORDERED: Potassium Chloride 20 mEq ER Tab PO STA (20:43)
[2018-07-29] MEDS ORDERED: Multivitamin (MVI) 10 ML, Thiamine 100 MG, Folic Acid 1 MG in Sodium Chloride 0.9% 1,00... IV ONE (22:57)
--- NOTE | 2018-07-30 00:08 | CP.PCM.HP ---
<Kyle Sheridan - Last Filed: 07/30/18 01:14> History of Present Illness - History of Present Illness History of Present Illness: PGY-[address] History and [address] Rodriguez Patient is a 48 year old homeless male with PMHx alcoholic cirrhosis, alcohol use disorder, pancytopenia who presents to ED acutely intoxicated and complaining of nose bleed for past 1-2 days. Patient has also had occasional intermittent nose bleeds over the past 3-4 weeks which he has not had in the past. The nose bleeds stop when patient holds pressure. He does also note feeling somewhat more tired than usual, but denies any recent weight loss. Patient states he drinks daily, and that he drank 8 24-oz beers yesterday which is a typical day for him. He drinks only beer, denies liquor consumption. His last drink was this evening prior to coming to ED. Patient has long history of alcohol abuse, with known history of alcoholic cirrhosis. He denies any history of liver CA, denies abdominal distention or noticeable abdominal fluid. Patient denies easy bleeding or bruising in the past. Patient is currently homeless and lives on [address] Patient is aware the he has liver disease which is due to chronic alcoholism. He does state often being shaky/tremulous in the mornings. PMHx: Alcoholic cirrhosis, pancytopenia, pulmonary nodule on prior chest CT Social hx: Drinks about 8 24-oz beers daily. Smokes 3/4 pack cigarettes daily. Denies illicit drug use including IVDU. Currently homeless and living on the street. Surgical hx: Appendectomy Allergies: No known allergies Family hx: Denies family hx liver disease, or other Medications: Denies taking any medications at home PMD: None Present on Admission - Present on Admission Any Indicators Present on Admission: No Review of Systems - Constitutional Constitutional: Fatigue. absent: Chills, Fever, Night Sweats, Weight Gain, Weight Loss - EENT Eyes: absent: Blurred Vision, Photophobia Ears: absent: Dizziness Nose/Mouth/Throat: absent: Nasal Congestion, Sore Throat - Cardiovascular Cardiovascular: absent: Chest Pain, Dyspnea, Edema, Palpitations - Respiratory Respiratory: absent: Cough, Hemoptysis, Wheezing, Excessive Mucous Production - Gastrointestinal Gastrointestinal: absent: Abdominal Pain, Bloating, Constipation, Diarrhea, Melena, Nausea, Vomiting - Genitourinary Genitourinary: absent: Dysuria, Flank Pain - Musculoskeletal Musculoskeletal: absent: Myalgias, Numbness, Tingling - Neurological Neurological: absent: Confusion, Dizziness, Numbness, Headaches, Memory Loss, Paresthesias, Tingling - Psychiatric Psychiatric: absent: Anxiety, Depression - Endocrine Endocrine: Fatigue. absent: Palpitations - Hematologic/Lymphatic Hematologic: absent: Easy Bleeding, Easy Bruising Additional comments: Denies noticeable jaundice/skin changes or scleral icterus Past Patient History - Infectious Disease Hx of Infectious Diseases: None - Past Social History Smoking Status: Current Some Days Smoker - CARDIAC Hx Cardiac Disorders: No - PULMONARY Hx Respiratory Disorders: No - NEUROLOGICAL Hx Neurological Disorder: No - HEENT Hx HEENT Problems: No Hx Blind: No - RENAL Hx Chronic Kidney Disease: No - ENDOCRINE/METABOLIC Hx Endocrine Disorders: No - HEMATOLOGICAL/ONCOLOGICAL Hx Blood Disorders: No - INTEGUMENTARY Hx Dermatological Problems: No Hx Basil Cell: No - MUSCULOSKELETAL/RHEUMATOLOGICAL Hx Arthritis: No - GASTROINTESTINAL Hx Gastrointestinal Disorders: No - GENITOURINARY/GYNECOLOGICAL Hx Genitourinary Disorders: No - PSYCHIATRIC Hx Psychophysiologic Disorder: No Hx Substance Use: No - SURGICAL HISTORY Hx Appendectomy: Yes - ANESTHESIA Hx Anesthesia: No Meds Allergies/Adverse Reactions: Allergies Allergy/AdvReac Type Severity Reaction Status Date / Time No Known Allergies Allergy Verified 07/29/18 19:18 Physical Exam - Constitutional Appears: Non-toxic, No Acute Distress - Head Exam Head Exam: ATRAUMATIC, NORMOCEPHALIC - Eye Exam Eye Exam: EOMI, PERRL Additional comments: No scleral icterus, pterygium bilaterally - ENT Exam ENT Exam: Mucous Membranes Dry - Respiratory Exam Respiratory Exam: Clear to Auscultation Bilateral, NORMAL BREATHING PATTERN. absent: Rales, Rhonchi, Wheezes - Cardiovascular Exam Cardiovascular Exam: REGULAR RHYTHM, +S1, +S2. absent: JVD Additional comments: No murmurs - GI/Abdominal Exam GI & Abdominal Exam: Normal Bowel Sounds, Soft. absent: Distended, Hernia, Organomegaly, Rebound, Tenderness Additional comments: No caput medusae, no abdominal distension, no hepatomegaly or splenomegaly, negative for fluid wave, no gynecomastia - Extremities Exam Extremities exam: Positive for: pedal edema (trace pedal edema). Negative for: tenderness Additional comments: Trace pedal edema, no palmar erythema - Neurological Exam Neurological exam: Alert, CN II-XII Intact, Oriented x3 Additional comments: No tremors, intact [id number], no asterixis - Psychiatric Exam Psychiatric exam: Normal Affect, Normal Mood - Skin Skin Exam: Dry, Intact, Normal Color, Warm Additional comments: No jaundice, no telangectasias, no nail changes Results - Vital Signs Recent Vital Signs: Last Vital Signs Temp 97.6 F 07/29/18 19:17 Pulse 92 H 07/29/18 19:17 Resp 18 07/29/18 19:17 BP 124/79 07/29/18 19:17 Pulse Ox 98 07/29/18 19:17 - Labs Result Diagrams: 07/29/18 20:20 07/29/18 20:20 Labs: Laboratory Results - last 24 hr 07/29/18 07/29/18 07/29/18 20:20 20:20 20:20 WBC 4.1 L RBC 3.30 L Hgb 10.6 L Hct 31.7 L MCV 96.1 MCH 32.1 MCHC 33.4 RDW 15.6 H Plt Count 36 L* MPV 9.9 Neut % (Auto) 54.5 Lymph % (Auto) 33.3 [place] % (Auto) 11.0 H Eos % (Auto) 1.0 L Baso % (Auto) 0.2 Lymph # (Auto) 1.4 [place] # (Auto) 0.5 Eos # (Auto) 0.0 Baso # (Auto) 0.01 Absolute Neuts (auto) 2.22 PT INR APTT Sodium 143 Potassium 3.5 L Chloride 105 Carbon Dioxide 25 Anion Gap 16 BUN 7 Creatinine 0.5 L Est GFR ( Amer) > 60 Est GFR (Non-Af Amer) > 60 Random Glucose 123 H Calcium 8.4 Total Bilirubin 1.2 AST 92 H ALT 20 Alkaline Phosphatase 195 H Troponin I Total Protein 8.4 H Albumin 3.3 Globulin 5.1 Albumin/Globulin Ratio 0.7 L Alcohol, Quantitative 347 H* Blood Type Blood Type Confirm Antibody Screen BBK History Checked 07/29/18 07/29/18 07/29/18 20:20 20:20 20:39 WBC RBC Hgb Hct MCV MCH MCHC RDW Plt Count MPV Neut % (Auto) Lymph % (Auto) [place] % (Auto) Eos % (Auto) Baso % (Auto) Lymph # (Auto) [place] # (Auto) Eos # (Auto) Baso # (Auto) Absolute Neuts (auto) PT 16.7 H INR 1.50 APTT 38.6 H Sodium Potassium Chloride Carbon Dioxide Anion Gap BUN Creatinine Est GFR ( Amer) Est GFR (Non-Af Amer) Random Glucose Calcium Total Bilirubin AST ALT Alkaline Phosphatase Troponin I < 0.01 Total Protein Albumin Globulin Albumin/Globulin Ratio Alcohol, Quantitative Blood Type O POSITIVE Blood Type Confirm Antibody Screen Negative BBK History Checked No verified bt 07/29/18 21:07 WBC RBC Hgb Hct MCV MCH MCHC RDW Plt Count MPV Neut % (Auto) Lymph % (Auto) [place] % (Auto) Eos % (Auto) Baso % (Auto) Lymph # (Auto) [place] # (Auto) Eos # (Auto) Baso # (Auto) Absolute Neuts (auto) PT INR APTT Sodium Potassium Chloride Carbon Dioxide Anion Gap BUN Creatinine Est GFR ( Amer) Est GFR (Non-Af Amer) Random Glucose Calcium Total Bilirubin AST ALT Alkaline Phosphatase Troponin I Total Protein Albumin Globulin Albumin/Globulin Ratio Alcohol, Quantitative Blood Type Blood Type Confirm O POSITIVE Antibody Screen BBK History Checked Assessment & Plan - Assessment and Plan (Free Text) Assessment: Alcoholic Liver Cirrhosis -Patient admitted to telemetry for cardiac monitoring -LARA 347. UDS - f/u -Lipase, f/u -CXR appears unremarkable - f/u official report -Fall precautions, seizure precautions, aspiration precautions - keep head of bed elevated to 30 degrees -[facility] protocol -Ativan 2mg PO Q2 prn -Banana bag (Thiamine / MV / Folic Acid), B12 -Mag, phos - f/u Pancytopenia -Typed and screened. 1 unit platelets ordered and on hold. -Transfusion consent not obtained at this time due to patient being intoxicated -Head CT with no signs of acute cranial bleed - f/u official report -Anemia workup --Iron, TIBC, Ferritin, Folate, B 12, Retic count, Peripheral Smear -Platelet count (manual) -Heme/onc consulted, Dr. George - f/u Hypokalemia -K 3.5, repleted -F/u AM CMP PPx -EVT: AC contraindicated 2/2 thrombocytopenia. SCDs. -GI: Pepcid 20 mg PO BID -Fall precautions, seizure precautions -[facility] protocol -HHD Assessment and plan discussed with Dr. Michael Sheridan, PGY-1 <Reny Rodriguez - Last Filed: 07/30/18 02:16> Results - Vital Signs Recent Vital Signs: Last Vital Signs Temp 97.6 F 07/29/18 19:17 Pulse 92 H 07/29/18 19:17 Resp 18 07/29/18 19:17 BP 124/79 07/29/18 19:17 Pulse Ox 98 07/29/18 19:17 - Labs Result Diagrams: 07/29/18 20:20 07/29/18 20:20 Labs: Laboratory Results - last 24 hr 07/29/18 07/29/18 07/29/18 20:20 20:20 20:20 WBC 4.1 L RBC 3.30 L Hgb 10.6 L Hct 31.7 L MCV 96.1 MCH 32.1 MCHC 33.4 RDW 15.6 H Plt Count 36 L* MPV 9.9 Neut % (Auto) 54.5 Lymph % (Auto) 33.3 [place] % (Auto) 11.0 H Eos % (Auto) 1.0 L Baso % (Auto) 0.2 Lymph # (Auto) 1.4 [place] # (Auto) 0.5 Eos # (Auto) 0.0 Baso # (Auto) 0.01 Absolute Neuts (auto) 2.22 PT INR APTT Sodium 143 Potassium 3.5 L Chloride 105 Carbon Dioxide 25 Anion Gap 16 BUN 7 Creatinine 0.5 L Est GFR ( Amer) > 60 Est GFR (Non-Af Amer) > 60 Random Glucose 123 H Calcium 8.4 Total Bilirubin 1.2 AST 92 H ALT 20 Alkaline Phosphatase 195 H Troponin I Total Protein 8.4 H Albumin 3.3 Globulin 5.1 Albumin/Globulin Ratio 0.7 L Alcohol, Quantitative 347 H* Blood Type Blood Type Confirm Antibody Screen BBK History Checked 07/29/18 07/29/18 07/29/18 20:20 20:20 20:39 WBC RBC Hgb Hct MCV MCH MCHC RDW Plt Count MPV Neut % (Auto) Lymph % (Auto) [place] % (Auto) Eos % (Auto) Baso % (Auto) Lymph # (Auto) [place] # (Auto) Eos # (Auto) Baso # (Auto) Absolute Neuts (auto) PT 16.7 H INR 1.50 APTT 38.6 H Sodium Potassium Chloride Carbon Dioxide Anion Gap BUN Creatinine Est GFR ( Amer) Est GFR (Non-Af Amer) Random Glucose Calcium Total Bilirubin AST ALT Alkaline Phosphatase Troponin I < 0.01 Total Protein Albumin Globulin Albumin/Globulin Ratio Alcohol, Quantitative Blood Type O POSITIVE Blood Type Confirm Antibody Screen Negative BBK History Checked No verified bt 07/29/18 21:07 WBC RBC Hgb Hct MCV MCH MCHC RDW Plt Count MPV Neut % (Auto) Lymph % (Auto) [place] % (Auto) Eos % (Auto) Baso % (Auto) Lymph # (Auto) [place] # (Auto) Eos # (Auto) Baso # (Auto) Absolute Neuts (auto) PT INR APTT Sodium Potassium Chloride Carbon Dioxide Anion Gap BUN Creatinine Est GFR ( Amer) Est GFR (Non-Af Amer) Random Glucose Calcium Total Bilirubin AST ALT Alkaline Phosphatase Troponin I Total Protein Albumin Globulin Albumin/Globulin Ratio Alcohol, Quantitative Blood Type Blood Type Confirm O POSITIVE Antibody Screen BBK History Checked Attending/Attestation - Attestation I have personally seen and examined this patient.: Yes I have fully participated in the care of the patient.: Yes I have reviewed all pertinent clinical information: Yes Notes (Text): 07/30/18 02:10 Patient was seen when he was in Cubicle # 2 in the ER. Medical record was reviewed. Agree with history, physical examination, assessment and plan. 48 year old obese male complains of dizziness, nose bleed, headache , has alcoholic smell, history of anemia, jaundice, appendectomy, chronic bilateral knees pain x 1 year, smoking 1 PPD x 14 years, b/l pterygium, thrombocytopenia, obesity- BMI-30.8kg/m2.
[2018-07-30 06:31] LABS: PH,URINE 6.5 (4.7-8.0); URINE BILIRUBIN NEGATIVE (NEGATIVE); URINE BLOOD LARGE (NEGATIVE); URINE GLUCOSE (UA) NEGATIVE (NEGATIVE); URINE LEUKOCYTE ESTERASE NEGATIVE Leu/uL (NEGATIVE); URINE PROTEIN NEGATIVE mg/dL (<30 mg/dL)
[2018-07-30 06:39] LABS: URINE APPEARANCE CLEAR (CLEAR); URINE COLOR YELLOW (YELLOW)
[2018-07-30 06:41] LABS: URINE BACTERIA OCC /hpf; URINE EPITHELIAL CELLS 0 - 2 /hpf (0-5); URINE WBC 0 - 2 /hpf (0-6)
[2018-07-30 06:48] LABS: BARBITURATES, UR NEGATIVE (NEGATIVE); BENZODIAZEPINES, UR NEGATIVE (NEGATIVE); OPIATES, UR NEGATIVE (NEGATIVE); PHENCYCLIDINE, UR NEGATIVE (NEGATIVE)
[2018-07-30 07:06] LABS: BASO # 0.01 K/mm3 (0.0-2.0); BASO % 0.4 % (0.0-3.0); EOS % 1.1 % (1.5-5.0); HEMOGLOBIN 9.6 g/dL (14.0-18.0); LYMPH # 1.1 (1.2-3.4); LYMPH % 39.4 % (22.0-35.0); MEAN CELL VOLUME 96.3 fl (80.0-105.0); MEAN CORPUSCULAR HEMOGLOBIN 32.1 pg (25.0-35.0); MEAN CORPUSCULAR HGB CONC 33.3 g/dl (31.0-37.0); MEAN PLATELET VOLUME 10.4 fl (7.0-11.0); MONO # 0.3 (0.1-0.6); MONO % 12.1 % (1.0-6.0); RBC 2.99 10^6/uL (3.5-6.1); RED CELL DISTRIBUTION WIDTH 15.7 % (11.5-14.5); WHITE BLOOD COUNT 2.8 10^3/uL (4.5-11.0)
[2018-07-30 07:14] LABS: ALB/GLOB RATIO 0.6 (1.1-1.8); ALBUMIN 2.9 g/dL (3.0-4.8); ALT/SGPT 23 U/L (7-56); AST/SGOT 78 U/L (17-59); BLOOD UREA NITROGEN 7 mg/dL (7-21); CALCIUM 7.9 mg/dL (8.4-10.5); GFR NON-AFRICAN AMERICAN > 60; LIPASE 81 U/L (23-300)
[2018-07-30 07:21] LABS: PLATELET COUNT 34 10^3/uL (120.0-450.0)
[2018-07-30 07:55] LABS: PLATELET COUNT MANUAL 41 K/mm3 (120-450)
[2018-07-30] MEDS ORDERED: Multivitamin Therapeutic Tab PO SCH (08:00)
[2018-07-30 08:08] VITALS: O2SAT 97
--- NOTE | 2018-07-30 08:48 | CT ---
Date of service: 07/29/2018 PROCEDURE: CT HEAD WITHOUT CONTRAST. HISTORY: headache, dizziness, nosebleed COMPARISON: Not available TECHNIQUE: Axial computed tomography images were obtained through the head/brain without intravenous contrast. Radiation dose: Total exam DLP = 1114.14 mGy-cm. This CT exam was performed using one or more of the following dose reduction techniques: Automated exposure control, adjustment of the mA and/or kV according to patient size, and/or use of iterative reconstruction technique. FINDINGS: HEMORRHAGE: No intracranial hemorrhage. BRAIN: No mass effect or edema. No atrophy or chronic microvascular ischemic changes. VENTRICLES: Unremarkable. No hydrocephalus. CALVARIUM: Unremarkable. PARANASAL SINUSES: Minimal bilateral chronic maxillary sinusitis. MASTOID AIR CELLS: Unremarkable as visualized. No inflammatory changes. OTHER FINDINGS: None. IMPRESSION: No intracranial mass, hemorrhage or evidence of acute infarct. Minimal chronic bilateral maxillary sinusitis.
[2018-07-30 09:05] LABS: IRON 77 ug/dL (45-180)
[2018-07-30 09:14] LABS: % IRON SATURATION 23 % (20-55); TOTAL IRON BINDING CAPACITY 338 ug/dL (261-462)
--- NOTE | 2018-07-30 09:19 | RAD ---
Date of service: 07/29/2018 HISTORY: dizziness COMPARISON: No prior. TECHNIQUE: 1 view obtained. FINDINGS: LUNGS: No active pulmonary disease. PLEURA: No significant pleural effusion identified, no pneumothorax apparent. CARDIOVASCULAR: No aortic atherosclerotic calcification present. Normal cardiac size. No pulmonary vascular congestion. OSSEOUS STRUCTURES: No significant abnormalities. VISUALIZED UPPER ABDOMEN: Normal. OTHER FINDINGS: None. IMPRESSION: No active disease.
--- NOTE | 2018-07-30 09:21 | CARD ---
APPROVED REPORT Date of service: 07/29/2018 EKG Measurement Heart [id number] <Conclusion> Normal sinus rhythm Normal ECG
[2018-07-30 09:23] LABS: INR 1.58; PARTIAL THROMBOPLASTIN TIME 37.4 Seconds (26.9-38.3); PROTHROMBIN TIME 17.9 SECONDS (9.4-12.5)
[2018-07-30 10:31] VITALS: BP 118/76; PULSE 76; RESP 18
[2018-07-30 12:13] VITALS: TEMP 98.2
--- NOTE | 2018-07-30 12:15 | CP.PCM.DIS ---
<PettyEmory R - Last Filed: 07/30/18 12:12> Provider - Provider Date of Admission: 07/29/18 21:57 Attending physician: Melina Oro MD Primary care physician: PMD: none Consults: 07/29/18 23:24 Hematology Oncology Consult Routine Comment: Consulting Provider: Steph George Consulting Physician: Steph George Reason for Consult: Pancytopenia, alcoholic cirrhosis Time Spent in preparation of Discharge (in minutes): 22 Diagnosis - Discharge Diagnosis (1) Alcohol intoxication Status: Acute Priority: High (2) Pancytopenia Status: Chronic Priority: High Hospital Course - Lab Results Lab Results: Most Recent Lab Values WBC 2.8 10^3/uL (4.5-11.0) L D 07/30/18 06:30 RBC 2.99 10^6/uL (3.5-6.1) L 07/30/18 06:30 Hgb 9.6 g/dL (14.0-18.0) L 07/30/18 06:30 Hct 28.8 % (42.0-52.0) L 07/30/18 06:30 MCV 96.3 fl (80.0-105.0) 07/30/18 06:30 MCH 32.1 pg (25.0-35.0) 07/30/18 06:30 MCHC 33.3 g/dl (31.0-37.0) 07/30/18 06:30 RDW 15.7 % (11.5-14.5) H 07/30/18 06:30 Plt Count 34 10^3/uL (120.0-450.0) L* 07/30/18 06:30 Manual Plt Count 41 K/mm3 (120-450) L* 07/30/18 06:30 MPV 10.4 fl (7.0-11.0) 07/30/18 06:30 Neut % (Auto) 47.0 % (50.0-68.0) L 07/30/18 06:30 Lymph % (Auto) 39.4 % (22.0-35.0) H 07/30/18 06:30 Garden % (Auto) 12.1 % (1.0-6.0) H 07/30/18 06:30 Eos % (Auto) 1.1 % (1.5-5.0) L 07/30/18 06:30 Baso % (Auto) 0.4 % (0.0-3.0) 07/30/18 06:30 Lymph # (Auto) 1.1 (1.2-3.4) L 07/30/18 06:30 [place] # (Auto) 0.3 (0.1-0.6) 07/30/18 06:30 Eos # (Auto) 0.0 (0.0-0.7) 07/30/18 06:30 Baso # (Auto) 0.01 K/mm3 (0.0-2.0) 07/30/18 06:30 Absolute Neuts (auto) 1.33 (1.4-6.5) L 07/30/18 06:30 Retic Count 1.40 % (0.5-1.5) 07/30/18 06:30 PT 17.9 SECONDS (9.4-12.5) H 07/30/18 08:53 INR 1.58 07/30/18 08:53 APTT 37.4 Seconds (26.9-38.3) 07/30/18 08:53 Sodium 143 mmol/L (132-148) 07/30/18 06:30 Potassium 3.7 mmol/L (3.6-5.0) 07/30/18 06:30 Chloride 110 mmol/L (98-107) H 07/30/18 06:30 Carbon Dioxide 25 mmol/L (21-33) 07/30/18 06:30 Anion Gap 11 (10-20) 07/30/18 06:30 BUN 7 mg/dL (7-21) 07/30/18 06:30 Creatinine 0.5 mg/dl (0.8-1.5) L 07/30/18 06:30 Est GFR ( Amer) > 60 07/30/18 06:30 Est GFR (Non-Af Amer) > 60 07/30/18 06:30 Random Glucose 85 mg/dL (70-110) 07/30/18 06:30 Calcium 7.9 mg/dL (8.4-10.5) L 07/30/18 06:30 Phosphorus 4.2 mg/dL (2.5-4.5) 07/30/18 06:30 Magnesium 1.7 mg/dL (1.7-2.2) 07/30/18 06:30 Iron 77 ug/dL (45-180) 07/30/18 06:30 TIBC 338 ug/dL (261-462) 07/30/18 06:30 % Saturation 23 % (20-55) 07/30/18 06:30 Total Bilirubin 1.2 mg/dL (0.2-1.3) 07/30/18 06:30 AST 78 U/L (17-59) H 07/30/18 06:30 ALT 23 U/L (7-56) 07/30/18 06:30 Alkaline Phosphatase 172 U/L (38-126) H 07/30/18 06:30 Troponin I < 0.01 ng/mL 07/29/18 20:20 Total Protein 7.5 g/dL (5.8-8.3) 07/30/18 06:30 Albumin 2.9 g/dL (3.0-4.8) L 07/30/18 06:30 Globulin 4.6 gm/dL 07/30/18 06:30 Albumin/Globulin Ratio 0.6 (1.1-1.8) L 07/30/18 06:30 Lipase 81 U/L (23-300) 07/30/18 06:30 Urine Color Yellow (YELLOW) 07/30/18 05:41 Urine Appearance Clear (CLEAR) 07/30/18 05:41 Urine pH 6.5 (4.7-8.0) 07/30/18 05:41 Ur Specific [place] <= 1.005 (1.005-1.035) 07/30/18 05:41 Urine Protein Negative mg/dL (<30 mg/dL) 07/30/18 05:41 Urine Glucose (UA) Negative mg/dL (NEGATIVE) 07/30/18 05:41 Urine Ketones Negative mg/dL (NEGATIVE) 07/30/18 05:41 Urine Blood Large (NEGATIVE) H 07/30/18 05:41 Urine Nitrate Negative (NEGATIVE) 07/30/18 05:41 Urine Bilirubin Negative (NEGATIVE) 07/30/18 05:41 Urine Urobilinogen 1.0 E.U./dL (<1 E.U./dL) H 07/30/18 05:41 Ur Leukocyte Esterase Negative Kellie/uL (NEGATIVE) 07/30/18 05:41 Urine RBC 2 - 5 /hpf (0-2) H 07/30/18 05:41 Urine WBC 0 - 2 /hpf (0-6) 07/30/18 05:41 Ur Epithelial Cells 0 - 2 /hpf (0-5) 07/30/18 05:41 Urine Bacteria Occ /hpf (NONE) 07/30/18 05:41 Urine Opiates Screen Negative (NEGATIVE) 07/30/18 05:41 Urine Methadone Screen Negative (NEGATIVE) 07/30/18 05:41 Ur Barbiturates Screen Negative (NEGATIVE) 07/30/18 05:41 Ur Phencyclidine Scrn Negative (NEGATIVE) 07/30/18 05:41 Ur Amphetamines Screen Negative (NEGATIVE) 07/30/18 05:41 U Benzodiazepines Scrn Negative (NEGATIVE) 07/30/18 05:41 U Oth Cocaine Metabols Negative (NEGATIVE) 07/30/18 05:41 U Cannabinoids Screen Negative (NEGATIVE) 07/30/18 05:41 Alcohol, Quantitative 347 mg/dL (0-10) H* 07/29/18 20:20 Blood Type O POSITIVE 07/29/18 20:39 Blood Type Confirm O POSITIVE 07/29/18 21:07 Antibody Screen Negative 07/29/18 20:39 BBK History Checked No verified bt 07/29/18 20:39 - Hospital Course Hospital Course: Patient is a 48 year old homeless male with PMHx alcoholic cirrhosis, alcohol use disorder, pancytopenia who presents to ED acutely intoxicated and complaining of nose bleed for past 1-2 days. Patient has also had occasional intermittent nose bleeds over the past 3-4 weeks which he has not had in the past. The nose bleeds stop when patient holds pressure. He does also note feeling somewhat more tired than usual, but denies any recent weight loss. Patient states he drinks daily, and that he drank 8 24-oz beers yesterday which is a typical day for him. He drinks only beer, denies liquor consumption. His last drink was this evening prior to coming to ED. Patient has long history of alcohol abuse, with known history of alcoholic cirrhosis. He denies any history of liver CA, denies abdominal distention or noticeable abdominal fluid. Patient denies easy bleeding or bruising in the past. Patient is currently homeless and lives on the [address] Patient is aware the he has liver disease which is due to chronic alcoholism. He does state often being shaky/tremulous in the mornings. PMHx: Alcoholic cirrhosis, pancytopenia, pulmonary nodule on prior chest CT Social hx: Drinks about 8 24-oz beers daily. Smokes 3/4 pack cigarettes daily. Denies illicit drug use including IVDU. Currently homeless and living on the street. Surgical hx: Appendectomy Allergies: No known allergies Family hx: Denies family hx liver disease, or other Medications: Denies taking any medications at home PMD: None HOSPITAL COURSE: The below plan was never fully implemented at the patient signed out AMA while still in the emergency room. Risks of signing out were discussed and patient had capacity to understand the risks. The intended plan for this patient is shown below: #Alcoholic Liver Cirrhosis -Patient admitted to telemetry for cardiac monitoring -LARA 347. UDS - f/u -Lipase, f/u -CXR appears unremarkable - f/u official report -Fall precautions, seizure precautions, aspiration precautions - keep head of bed elevated to 30 degrees -[facility] protocol -Ativan 2mg PO Q2 prn -Banana bag (Thiamine / MV / Folic Acid), B12 -Mag, phos - f/u #Pancytopenia -Typed and screened. 1 unit platelets ordered and on hold. -Transfusion consent not obtained at this time due to patient being intoxicated -Head CT with no signs of acute cranial bleed - f/u official report -Anemia workup --Iron, TIBC, Ferritin, Folate, B 12, Retic count, Peripheral Smear -Platelet count (manual) -Heme/onc consulted, Dr. George - f/u #Hypokalemia -K 3.5, repleted -F/u AM CMP PPx -EVT: AC contraindicated 2/2 thrombocytopenia. SCDs. -GI: Pepcid 20 mg PO BID -Fall precautions, seizure precautions -[facility] protocol -HHD Discharge Exam - Head Exam Head Exam: ATRAUMATIC, NORMOCEPHALIC - Additional Findings Additional findings: - Constitutional Appears: Non-toxic, No Acute Distress - Head Exam Head Exam: ATRAUMATIC, NORMOCEPHALIC - Eye Exam Eye Exam: EOMI, PERRL Additional comments: No scleral icterus, pterygium bilaterally - ENT Exam ENT Exam: Mucous Membranes Dry - Respiratory Exam Respiratory Exam: Clear to Auscultation Bilateral, NORMAL BREATHING PATTERN. absent: Rales, Rhonchi, Wheezes - Cardiovascular Exam Cardiovascular Exam: REGULAR RHYTHM, +S1, +S2. absent: JVD Additional comments: No murmurs - GI/Abdominal Exam GI & Abdominal Exam: Normal Bowel Sounds, Soft. absent: Distended, Hernia, Organomegaly, Rebound, Tenderness Additional comments: No caput medusae, no abdominal distension, no hepatomegaly or splenomegaly, negative for fluid wave, no gynecomastia - Extremities Exam Extremities exam: Positive for: pedal edema (trace pedal edema). Negative for: tenderness Additional comments: Trace pedal edema, no palmar erythema - Neurological Exam Neurological exam: Alert, CN II-XII Intact, Oriented x3 Additional comments: No tremors, intact [id number], no asterixis - Psychiatric Exam Psychiatric exam: Normal Affect, Normal Mood - Skin Skin Exam: Dry, Intact, Normal Color, Warm Additional comments: No jaundice, no telangectasias, no nail changes Discharge Plan - Follow Up Plan Condition: STABLE Disposition: AGAINST MEDICAL ADVICE <Kehinde Cerrato - Last Filed: 07/30/18 15:31> Provider - Provider Date of Admission: 07/29/18 21:57 Attending physician: Melina Oro MD Consults: 07/29/18 23:24 Hematology Oncology Consult Routine Comment: Consulting Provider: Steph George Consulting Physician: Steph George Reason for Consult: Pancytopenia, alcoholic cirrhosis Hospital Course - Lab Results Lab Results: Most Recent Lab Values WBC 2.8 10^3/uL (4.5-11.0) L D 07/30/18 06:30 RBC 2.99 10^6/uL (3.5-6.1) L 07/30/18 06:30 Hgb 9.6 g/dL (14.0-18.0) L 07/30/18 06:30 Hct 28.8 % (42.0-52.0) L 07/30/18 06:30 MCV 96.3 fl (80.0-105.0) 07/30/18 06:30 MCH 32.1 pg (25.0-35.0) 07/30/18 06:30 MCHC 33.3 g/dl (31.0-37.0) 07/30/18 06:30 RDW 15.7 % (11.5-14.5) H 07/30/18 06:30 Plt Count 34 10^3/uL (120.0-450.0) L* 07/30/18 06:30 Manual Plt Count 41 K/mm3 (120-450) L* 07/30/18 06:30 MPV 10.4 fl (7.0-11.0) 07/30/18 06:30 Neut % (Auto) 47.0 % (50.0-68.0) L 07/30/18 06:30 Lymph % (Auto) 39.4 % (22.0-35.0) H 07/30/18 06:30 Garden % (Auto) 12.1 % (1.0-6.0) H 07/30/18 06:30 Eos % (Auto) 1.1 % (1.5-5.0) L 07/30/18 06:30 Baso % (Auto) 0.4 % (0.0-3.0) 07/30/18 06:30 Lymph # (Auto) 1.1 (1.2-3.4) L 07/30/18 06:30 [place] # (Auto) 0.3 (0.1-0.6) 07/30/18 06:30 Eos # (Auto) 0.0 (0.0-0.7) 07/30/18 06:30 Baso # (Auto) 0.01 K/mm3 (0.0-2.0) 07/30/18 06:30 Absolute Neuts (auto) 1.33 (1.4-6.5) L 07/30/18 06:30 Retic Count 1.40 % (0.5-1.5) 07/30/18 06:30 PT 17.9 SECONDS (9.4-12.5) H 07/30/18 08:53 INR 1.58 07/30/18 08:53 APTT 37.4 Seconds (26.9-38.3) 07/30/18 08:53 Sodium 143 mmol/L (132-148) 07/30/18 06:30 Potassium 3.7 mmol/L (3.6-5.0) 07/30/18 06:30 Chloride 110 mmol/L (98-107) H 07/30/18 06:30 Carbon Dioxide 25 mmol/L (21-33) 07/30/18 06:30 Anion Gap 11 (10-20) 07/30/18 06:30 BUN 7 mg/dL (7-21) 07/30/18 06:30 Creatinine 0.5 mg/dl (0.8-1.5) L 07/30/18 06:30 Est GFR ( Amer) > 60 07/30/18 06:30 Est GFR (Non-Af Amer) > 60 07/30/18 06:30 Random Glucose 85 mg/dL (70-110) 07/30/18 06:30 Calcium 7.9 mg/dL (8.4-10.5) L 07/30/18 06:30 Phosphorus 4.2 mg/dL (2.5-4.5) 07/30/18 06:30 Magnesium 1.7 mg/dL (1.7-2.2) 07/30/18 06:30 Iron 77 ug/dL (45-180) 07/30/18 06:30 TIBC 338 ug/dL (261-462) 07/30/18 06:30 % Saturation 23 % (20-55) 07/30/18 06:30 Ferritin 25.3 ng/mL 07/30/18 06:30 Total Bilirubin 1.2 mg/dL (0.2-1.3) 07/30/18 06:30 AST 78 U/L (17-59) H 07/30/18 06:30 ALT 23 U/L (7-56) 07/30/18 06:30 Alkaline Phosphatase 172 U/L (38-126) H 07/30/18 06:30 Troponin I < 0.01 ng/mL 07/29/18 20:20 Total Protein 7.5 g/dL (5.8-8.3) 07/30/18 06:30 Albumin 2.9 g/dL (3.0-4.8) L 07/30/18 06:30 Globulin 4.6 gm/dL 07/30/18 06:30 Albumin/Globulin Ratio 0.6 (1.1-1.8) L 07/30/18 06:30 Lipase 81 U/L (23-300) 07/30/18 06:30 Vitamin B12 567 pg/mL (239-931) 07/30/18 06:30 Folate > 20.0 ng/mL 07/30/18 06:30 Urine Color Yellow (YELLOW) 07/30/18 05:41 Urine Appearance Clear (CLEAR) 07/30/18 05:41 Urine pH 6.5 (4.7-8.0) 07/30/18 05:41 Ur Specific [place] <= 1.005 (1.005-1.035) 07/30/18 05:41 Urine Protein Negative mg/dL (<30 mg/dL) 07/30/18 05:41 Urine Glucose (UA) Negative mg/dL (NEGATIVE) 07/30/18 05:41 Urine Ketones Negative mg/dL (NEGATIVE) 07/30/18 05:41 Urine Blood Large (NEGATIVE) H 07/30/18 05:41 Urine Nitrate Negative (NEGATIVE) 07/30/18 05:41 Urine Bilirubin Negative (NEGATIVE) 07/30/18 05:41 Urine Urobilinogen 1.0 E.U./dL (<1 E.U./dL) H 07/30/18 05:41 Ur Leukocyte Esterase Negative Kellie/uL (NEGATIVE) 07/30/18 05:41 Urine RBC 2 - 5 /hpf (0-2) H 07/30/18 05:41 Urine WBC 0 - 2 /hpf (0-6) 07/30/18 05:41 Ur Epithelial Cells 0 - 2 /hpf (0-5) 07/30/18 05:41 Urine Bacteria Occ /hpf (NONE) 07/30/18 05:41 Urine Opiates Screen Negative (NEGATIVE) 07/30/18 05:41 Urine Methadone Screen Negative (NEGATIVE) 07/30/18 05:41 Ur Barbiturates Screen Negative (NEGATIVE) 07/30/18 05:41 Ur Phencyclidine Scrn Negative (NEGATIVE) 07/30/18 05:41 Ur Amphetamines Screen Negative (NEGATIVE) 07/30/18 05:41 U Benzodiazepines Scrn Negative (NEGATIVE) 07/30/18 05:41 U Oth Cocaine Metabols Negative (NEGATIVE) 07/30/18 05:41 U Cannabinoids Screen Negative (NEGATIVE) 07/30/18 05:41 Alcohol, Quantitative 347 mg/dL (0-10) H* 07/29/18 20:20 Blood Type O POSITIVE 07/29/18 20:39 Blood Type Confirm O POSITIVE 07/29/18 21:07 Antibody Screen Negative 07/29/18 20:39 BBK History Checked No verified bt 07/29/18 20:39 Attending/Attestation - Attestation I have personally seen and examined this patient.: Yes I have fully participated in the care of the patient.: Yes I have reviewed all pertinent clinical information, including history, physical exam and plan: Yes Notes (Text): 07/30/18 15:28 Medical record note made by the resident after discussion with my direction and input after the patient was personally seen and examined by me. I have reviewed the chart and agree that the record accurately reflects by personal performance of the history, physical exam, data review, and medical decision-making, in the course for the patient. I have also personally directed the plan of care. 48 year old homeless male with PMHx alcoholic cirrhosis, alcohol use disorder, pancytopenia was admitted for alcohol withdrawal, elevated LFT and worsening thrombocytopenia with out any active bleeding.He is alert,awake and oriented at the time of examination.He has refused to stay in the hospital.The issue was discussed in detail with him.He has signed AMA. The Prognosis is guarded.
[2018-07-30 14:07] LABS: FERRITIN 25.3 ng/mL
[2018-07-30 14:37] LABS: FOLATE > 20.0 ng/mL
[2018-07-30 17:23] LABS: HEPATITIS B SURFACE AG Negative (NEGATIVE)
[2018-07-30 17:29] LABS: HEPATITIS A IGM NEGATIVE (NEGATIVE); HEPATITIS B CORE AB NEGATIVE (NEGATIVE)
[2018-07-30 17:41] LABS: HEPATITIS C ANTIBODY NEGATIVE (NEGATIVE)
== END 2018-07-30 10:06 | disposition left against medical advice (07) ==
LOC: ED 18:55 → ERH 21:57 → UNDOADMIN 21:57 → ED 07-30 10:06
DX: D61.818 Other pancytopenia (principal); F10.129 Alcohol abuse with intoxication, unspecified; Y90.8 Blood alcohol level of 240 mg/100 ml or more; R91.8 Other nonspecific abnormal finding of lung field
CPT/HCPCS: 70450; 71045; 80053; 80074; 81001; 82607; 82728; 82746; 83540; 83550; 83690; 83735; 84100; 84484; 85025; 85044; 85610; 85730; 86850; 86900; 88112; 93005; 99285; G0480; J3411; J7030

== ENCOUNTER 2018-08-08 19:13 | Emergency (ER) | payer SELFPAY ==
[2018-08-08 19:33] VITALS: BMI 31.6
[2018-08-08 19:38] VITALS: TEMP 98.1
[2018-08-08] MEDS ORDERED: Sodium Chloride 0.9% 1,000 ML IV STA (19:40)
--- NOTE | 2018-08-08 19:47 | ED PDOC ---
Arrival/HPI - General Chief Complaint: Headache Time Seen by Provider: 08/08/18 19:20 Historian: Patient EM Caveat: Intoxicated (alcohol intoxication) - History of Present Illness Narrative History of Present Illness (Text): 08/08/18 19:45 48 year old male, whose past medical history includes cirrhosis, cholelithiasis, and alcohol abuse presents to the ED intoxicated complaining of a headache since today. Patient reports associated pain at the back of his head. Patient notes he drank 24 beers today. Patient denies any fevers, chills, dizziness, chest pain, shortness of breath, dyspnea on exertion, cough, abdominal pain, nausea, vomiting, diarrhea, back pain, neck pain, urinary/bowel changes, or any other complaints. Time/Duration: 4-6 hours Symptom Onset: Gradual Symptom Course: Unchanged Activities at Onset: Light Context: Home Past Medical History - Provider Review Nursing Documentation Reviewed: Yes - Infectious Disease Hx of Infectious Diseases: None - Cardiac Hx Cardiac Disorders: No - Pulmonary Hx Respiratory Disorders: No - Neurological Hx Neurological Disorder: No - HEENT Hx HEENT Disorder: No Hx Blind: No - Renal Hx Renal Disorder: No - Endocrine/Metabolic Hx Endocrine Disorders: No - Hematological/Oncological Hx Blood Disorders: No - Integumentary Hx Dermatological Disorder: No Hx Basal Cell Carcinoma: No - Musculoskeletal/Rheumatological Hx Arthritis: No - Gastrointestinal Hx Gastrointestinal Disorders: No - Genitourinary/Gynecological Hx Genitourinary Disorders: No - Psychiatric Hx Psychophysiologic Disorder: No Hx Substance Use: No - Surgical History Hx Appendectomy: Yes - Anesthesia Hx Anesthesia: No Hx Anesthesia Reactions: No Hx Malignant Hyperthermia: No Family/Social History - Physician Review Nursing Documentation Reviewed: Yes Family/Social History: Unknown Family HX Smoking Status: Current Some Days Smoker Hx Alcohol Use: Yes Hx Substance Use: No Allergies/Home Meds Allergies/Adverse Reactions: Allergies No Known Allergies Allergy (Verified 07/30/18 12:10) Home Medications: Home Meds Medication Instructions Recorded Confirmed No Known Home Med 12/10/16 08/09/18 Review of Systems - Review of Systems Systems not reviewed;Unavailable: Intoxicated (alcohol intoxication) Respiratory: absent: SOB Cardiovascular: absent: Chest Pain Gastrointestinal: absent: Abdominal Pain, Vomiting Musculoskeletal: absent: Back Pain Neurological: Headache Physical Exam - Physical Exam Physical Exam Limitations: Intoxication Vital Signs Reviewed: Yes Vital Signs Temp Pulse Resp BP Pulse Ox 08/08/18 19:37 98.1 F 75 18 136/77 100 Temperature: Afebrile Blood Pressure: Normal Pulse: Regular Respiratory Rate: Normal Appearance: Positive for: Well-Appearing, Non-Toxic, Comfortable Pain Distress: None - Systems Exam Head: Present: Atraumatic, Normocephalic Pupils: Present: PERRL Extroacular Muscles: Present: EOMI Conjunctiva: Present: Injected Neck: Present: Normal Range of Motion Respiratory/Chest: Present: Clear to Auscultation, Good Air Exchange. No: Respiratory Distress, Accessory Muscle Use Cardiovascular: Present: Regular Rate and Rhythm, Normal S1, S2. No: Murmurs Abdomen: No: Tenderness, Distention, Peritoneal Signs Upper Extremity: Present: Normal Inspection. No: Cyanosis, Edema Lower Extremity: Present: Normal Inspection. No: Edema Neurological: No: Speech Normal (slurred speech) Skin: Present: Warm, Dry, Normal Color. No: Rashes Psychiatric: Present: Alert Medical Decision Making ED Course and Treatment: 08/08/18 19:56 Impression: 48 year old male who presents to the ED intoxicated complaining of a headache. Plan: -- CT Head -- Labs -- Toradol -- Reglan -- IV Fluids -- Reassess and disposition Prior Visits: Notes and results from previous visits were reviewed. Progress Notes: 08/09/18 01:16 Alcohol level noted to be 400s with CTH negative for acute intracranial pathology. Patient noted to be sleeping in bed comfortably. - Lab Interpretations Lab Results: 08/08/18 20:30 08/08/18 20:30 Lab Results 08/08/18 20:30: Alcohol, Quantitative 421 H* 08/08/18 20:30: Sodium 142, Potassium 3.7, Chloride 104, Carbon Dioxide 26, Anion Gap 16, BUN 6 L, Creatinine 0.4 L, Est GFR ( Amer) > 60, Est GFR (Non-Af Amer) > 60, Random Glucose 104, Calcium 8.1 L, Total Bilirubin 1.3, AST 90 H, ALT 15, Alkaline Phosphatase 221 H D, Total Protein 8.2, Albumin 3.5, Gl obulin 4.7, Albumin/Globulin Ratio 0.7 L 08/08/18 20:30: WBC 3.7 L D, RBC 3.35 L, Hgb 10.8 L, Hct 32.4 L, MCV 96.7, MCH 32.2, MCHC 33.3, RDW 15.7 H, Plt Count 63 L, MPV 10.0, Neut % (Auto) 52.2, Lymph % (Auto) 36.9 H, [place] % (Auto) 8.3 H, Eos % (Auto) 1.3 L, Baso % (Auto) 1.3, Lymph # (Auto) 1.4, [place] # (Auto) 0.3, Eos # (Auto) 0.1, Baso # (Auto) 0.05, Absolute Neuts (auto) 1.95 I have reviewed the lab results: Yes - RAD Interpretation Narrative RAD Interpretations (Text): 08/08/18 23:31 CT Head Without IV contrast. CLINICAL HISTORY: BEACH TECHNIQUE: Axial computed tomography images of the head/brain without intravenous contrast. COMPARISON: CT\SR - HEAD W/O CONTRAST - 07/29/2018 08:37 PM EDT FINDINGS: BRAIN: No acute intraparenchymal hemorrhage. No mass lesion. No CT evidence for acute territorial infarct. No midline shift or extra-axial collections. VENTRICLES: No hydrocephalus. ORBITS: The orbits are unremarkable. SINUSES AND MASTOIDS: Mucoperiosteal thickening noted in the inferior right maxillary sinus compatible with sinusitis. The remaining paranasal sinuses and mastoid air cells are clear. BONES: No fracture. SOFT TISSUES: Unremarkable. IMPRESSION: 1. Mucoperiosteal thickening noted in the inferior right maxillary sinus compatible with sinusitis. The remaining paranasal sinuses and mastoid air cells are clear. 2. No acute intracranial abnormality. Radiology Orders: 08/08/18 19:35 HEAD W/O CONTRAST [CT] Stat Mutton Puncher: Radiologist - Medication Orders Current Medication Orders: Sodium Chloride (Sodium Chloride 0.9%) 1,000 mls @ 999 mls/hr IV .Q1H1M STA Stop: 08/08/18 20:35 Sodium Chloride (Sodium Chloride 0.9%) 1,000 mls @ 999 mls/hr IV .Q1H1M STA Stop: 08/08/18 20:40 Discontinued Medications Ketorolac Tromethamine (Toradol) 30 mg IVP STAT STA Stop: 08/08/18 19:36 Metoclopramide HCl (Reglan) 10 mg IVP STAT STA Stop: 08/08/18 19:36 - Scribe Statement The provider has reviewed the documentation as recorded by the Elaibe Frank Conteh Provider Elaibe Attestation: All medical record entries made by the Scribe were at my direction and personally dictated by me. I have reviewed the chart and agree that the record accurately reflects my personal performance of the history, physical exam, medical decision making, and the department course for this patient. I have also personally directed, reviewed, and agree with the discharge instructions and disposition. Disposition/Present on Arrival - Present on Arrival Any Indicators Present on Arrival: No History of DVT/PE: No History of Uncontrolled Diabetes: No Urinary Catheter: No History of Decub. Ulcer: No History Surgical Site Infection Following: None - Disposition Have Diagnosis and Disposition been Completed?: Yes Diagnosis: Alcohol intoxication Disposition: HOME/ ROUTINE Disposition Time: 06:00 Patient Plan: Discharge Condition: IMPROVED Discharge Instructions (ExitCare): Alcohol Use - When Is Drinking a Problem? Print Language: [place] Additional Instructions: All medical record entries made by the Scribe were at my direction and personally dictated by me. I have reviewed the chart and agree that the record accurately reflects my personal performance of the history, physical exam, medical decision making, and the department course for this patient. I have also personally directed, reviewed, and agree with the discharge instructions and disposition. Please follow up with your PCP or in clinic Referrals: Verna Li MD [Medical Doctor] - Follow up with primary [facility] [Outside] - Follow up with primary Forms: [employer] (Persian)
[2018-08-08] MEDS: Sodium Chloride 0.9% 1,000 ML IV STA (20:36)
[2018-08-08 20:53] LABS: BASO # 0.05 K/mm3 (0.0-2.0); BASO % 1.3 % (0.0-3.0); EOS # 0.1 (0.0-0.7); EOS % 1.3 % (1.5-5.0); HEMOGLOBIN 10.8 g/dL (14.0-18.0); LYMPH # 1.4 (1.2-3.4); LYMPH % 36.9 % (22.0-35.0); MEAN CELL VOLUME 96.7 fl (80.0-105.0); MEAN CORPUSCULAR HEMOGLOBIN 32.2 pg (25.0-35.0); MEAN CORPUSCULAR HGB CONC 33.3 g/dl (31.0-37.0); MONO # 0.3 (0.1-0.6); MONO % 8.3 % (1.0-6.0); RBC 3.35 10^6/uL (3.5-6.1); RED CELL DISTRIBUTION WIDTH 15.7 % (11.5-14.5); WHITE BLOOD COUNT 3.7 10^3/uL (4.5-11.0)
[2018-08-08 21:04] LABS: ALB/GLOB RATIO 0.7 (1.1-1.8); ALBUMIN 3.5 g/dL (3.0-4.8); ALT/SGPT 15 U/L (7-56); AST/SGOT 90 U/L (17-59); BLOOD UREA NITROGEN 6 mg/dL (7-21); CALCIUM 8.1 mg/dL (8.4-10.5); GFR NON-AFRICAN AMERICAN > 60
[2018-08-08] MEDS: Multivitamin (MVI) 10 ML, Thiamine 100 MG, Folic Acid 1 MG in Sodium Chloride 0.9% 1,00... IV ONE (21:16)
[2018-08-09 05:11] VITALS: RESP 18
[2018-08-09 06:03] VITALS: BP 110/58; PULSE 88; O2SAT 96
--- NOTE | 2018-08-09 08:04 | CT ---
Date of service: 08/08/2018 PROCEDURE: CT HEAD WITHOUT CONTRAST. HISTORY: headache COMPARISON: 07/29/2018 TECHNIQUE: Axial computed tomography images were obtained through the head/brain without intravenous contrast. Radiation dose: Total exam DLP = 1063.32 mGy-cm. This CT exam was performed using one or more of the following dose reduction techniques: Automated exposure control, adjustment of the mA and/or kV according to patient size, and/or use of iterative reconstruction technique. FINDINGS: HEMORRHAGE: No intracranial hemorrhage. BRAIN: No mass effect or edema. No atrophy or chronic microvascular ischemic changes. VENTRICLES: Unremarkable. No hydrocephalus. CALVARIUM: Unremarkable. PARANASAL SINUSES: Mucosal thickening in the right maxillary sinus MASTOID AIR CELLS: Unremarkable as visualized. No inflammatory changes. OTHER FINDINGS: The report concurs with the preliminary [facility] report IMPRESSION: No acute intracranial findings
== END 2018-08-09 06:21 | disposition home or self-care (01) ==
LOC: ED 19:13
DX: F10.129 Alcohol abuse with intoxication, unspecified (principal)
CPT/HCPCS: 70450; 80053; 85025; 96374; 96375; 99285; G0480; J1885; J2765; J3411; J7030